=== PATIENT | male | born 1970 | race Caucasian/White ===

== ENCOUNTER 2024-05-05 15:49 | Emergency (ER) | payer MEDICAID, SELFPAY ==
--- NOTE | 2024-05-05 15:52 | XRR_ITS ---
PROCEDURE INFORMATION: Exam: XR Chest Exam date and time: 05/05/2024 4:23 PM Age: 53 years old Clinical indication: Fever TECHNIQUE: Imaging protocol: Radiologic exam of the chest. Views: 1 view. COMPARISON: No relevant prior studies available. FINDINGS: Lungs: Calcified granuloma in the left upper lobe. Possible ground-glass opacities in the peripheral lungs bilaterally. No consolidation. Pleural spaces: Unremarkable. No pleural effusion. No pneumothorax. Heart/Mediastinum: Unremarkable. No cardiomegaly. Bones/joints: Resection of the distal left clavicle. No fracture. XR/XR chest 1V portable [id number] IMPRESSION: Mild ground-glass opacities in the peripheral lungs. This may in part relate to underpenetration of the image. Multilobar pneumonia cannot be excluded.
[2024-05-05 16:00] VITALS: BP 154/77; PULSE 73; RESP 18; TEMP 36.7; O2SAT 97
[2024-05-05 16:04] VITALS: RESP 18
--- NOTE | 2024-05-05 16:19 | W.ED.GENADLT ---
Documented by User: MILDRED Forde 05/05/24 16:35 HPI - General Adult General: Chief complaint: COVID symptoms Stated complaint: coughing, sore throat, no engery, fever Time Seen by Provider: 05/05/24 16:08 Source: patient and family Mode of arrival: ambulatory Limitations: no limitations History of Present Illness: Patient is 83-year-old male presents to ED today along with his significant other for evaluation of illness. Patient states he has felt ill over the past 3 weeks. He complains of profound fatigue. He states 3 weeks ago he began with URI-like symptoms including a sore throat cough. He was subsequently placed on azithromycin which she finished. He states he was also given steroids and albuterol. He was reportedly being treated for a COPD exacerbation. Patient states he did not get improvement so he returned where he was prescribed doxycycline. He started this medication yesterday. At some point he did have a chest x-ray which was reportedly normal. He feels like cough is somewhat better. He still complains of a sore throat. He feels like his feet are burning. He also states his penis is burning. He has not noticed any rashes or lesions. He does not complain of penile discharge or dysuria. His main complaint is fatigue. Onset (ago): week(s) Relieving factors: none Exacerbating factors: none Associated symptoms: Deny chest pain, dyspnea, headache(s), nausea, rash or vomiting Related Data Home Medications Medication Instructions Recorded Confirmed albuterol sulfate 1.25 mg/3 mL 1.25 mg inhalation QID PRN 06/29/23 06/29/23 solution for nebulization fluticasone fur. 100 mcg-umeclid 1 inh inhalation DAILY 06/29/23 06/29/23 62.5 mcg-vilant 25 mcg inhalat.powder (Trelegy Ellipta) Previous Rx's Medication Instructions Recorded cyclobenzaprine 10 mg tablet 10 mg PO TID PRN muscle spasm #20 06/29/23 tabs ketorolac 10 mg tablet 10 mg PO TID PRN pain 4 days #12 06/29/23 tabs benzonatate 200 mg capsule 200 mg PO BID PRN cough #30 caps 05/05/24 lidocaine HCl 2 % mucosal solution 10 ml mucous membrane DAILY PRN 05/05/24 (Lidocaine Viscous) pain #100 mL Allergies Allergy/AdvReac Type Severity Reaction Status Date / Time Penicillins Allergy Severe ALGY-Anaphy Verified 06/29/23 14:03 laxis celecoxib [From Celebrex] Allergy Intermediate ADR-Itching Verified 06/29/23 14:03 diclofenac [From Arthrotec] Allergy Intermediate ADR-Itching Verified 06/29/23 14:03 erythromycin base Allergy Intermediate ADR-Itching Verified 06/29/23 14:03 misoprostol [From Arthrotec] Allergy Intermediate ADR-Itching Verified 06/29/23 14:03 Review of Systems Const: Reports: fatigue; Denies: fever(s), chills or body aches Eyes: Denies: change in vision, blurry vision, photophobia, floaters or seeing flashes ENMT: Reports: throat pain and odynophagia; Denies: ear or mastoid pain, nasal discharge, nasal congestion or sinus pain Card: Denies: chest pain Resp: Reports: productive cough; Denies: dyspnea, wheezing, hemoptysis or chest congestion GI: Denies: abdominal pain, nausea, vomiting or diarrhea : Denies: flank pain, difficulty urinating, dysuria, urinary frequency, urinary urgency or urinary hesitancy Musc: Reports: extremity pain (states his feet burn); Denies: neck pain, back pain, extremity swelling, joint pain or joint swelling Skin/Breast: Denies: rash Neuro: Denies: headache(s), weakness in extremities or dizziness Physical Exam Const: COMMON NORMALS: no acute distress, average body habitus, patient oriented x3, no limitations, healthy appearing, alert and well nourished GENERAL APPEARANCE: cooperative ORIENTATION/CONSCIOUSNESS: Yes awake, Yes oriented to person, Yes oriented to place and Yes oriented to time HENMT: COMMON NORMALS: normocephalic and atraumatic HEAD & SCALP: normal to inspection, normocephalic and atraumatic FACE & SINUS: normal facial exam MOUTH: Normal oral and palatal mucosa present and lip normal TEETH & GINGIVA: Yes edentulous THROAT: tonsils normal and posterior oropharynx abnormal erythema Eye: GENERAL EYE: appearance normal, both eyes and all related structures Neck/C-Spine: COMMON NORMALS: no lymphadenopathy Chest: COMMONS NORMALS: normal inspection of the chest and normal palpation of entire chest wall Resp: COMMON NORMALS: normal respiratory effort and clear to auscultation bilaterally AUSCULTATION: clear to auscultation bilaterally Cardio: COMMON NORMALS: regular rate and regular rhythm RATE: regular rate RHYTHM: regular rhythm GI: COMMON NORMALS: Normal to inspection, nondistended, normoactive bowel sounds present, Soft to palpation, non-tender, No hepatosplenomegaly present and no masses PALPATION: Yes Soft to palpation and Yes No hepatosplenomegaly present : COMMON NORMALS: Yes no CVA tenderness BLADDER/KIDNEY EXAM: Yes no CVA tenderness Back/Pelvis: COMMON NORMALS: no CVA tenderness and thoracic and lumbar spine normal to inspection Extremity: GENERAL: Yes normal exam except as noted Neuro: MARI COMA SCALE: document GCS findings [place] coma scale eye opening: Spontaneous [place] coma scale verbal response: Orientated Mari coma scale motor response: Obey commands [place] coma scale total score: 15 COMMON NORMALS: patient oriented x3, moves all extremities, no focal motor deficits, no sensory deficits noted and gait normal SENSORIUM/ORIENTATION: Yes alert, Yes oriented to person, Yes oriented to place and Yes oriented to time Skin: COMMON NORMALS: no rashes or lesions noted GENERAL SKIN EXAM: no rashes or lesions noted Course Vital Signs: Vital signs: Vital Signs Temperature 98.0 F 05/05/24 16:00 Pulse Rate 88 05/05/24 18:27 Respiratory Rate 18 05/05/24 18:27 Blood Pressure 149/87 05/05/24 18:27 Pulse Oximetry 97 05/05/24 18:27 Oxygen Delivery Me thod Room Air 05/05/24 18:04 [facility] - General Adult Lab Data 05/05/24 16:29 05/05/24 16:29 Radiology Impressions Chest X-Ray 05/05/24 15:52 IMPRESSION: Mild ground-glass opacities in the peripheral lungs. This may in part relate to underpenetration of the image. Multilobar pneumonia cannot be excluded. Laboratory Results WBC 11.80 10^3/uL (3.29-11.43) H 05/05/24 16: RBC 4.92 10^6/uL (3.85-5.65) 05/05/24 16:29 Hgb 14.70 g/dL (11.27-16.99) 05/05/24 16: Hct 44.6 % (37-53) 05/05/24 16: MCV 90.7 fl (82-101) 05/05/24 16: MCH 29.9 pg (27-33) 05/05/24 16: MCHC 33.0 g/dL (30-55) 05/05/24 16: RDW 13.2 % (12.1-15.1) 05/05/24 16: Plt Count 161 10^3/cmm (157-399) 05/05/24 16: MPV 9.6 fL (7.4-10.4) 05/05/24 16: Neut % (Auto) 67.3 % 05/05/24 16: Lymph % (Auto) 15.9 % 05/05/24 16: [place] % (Auto) 10.1 % 05/05/24 16: Eos % (Auto) 4.4 % 05/05/24 16: Baso % (Auto) 1.4 % 05/05/24: Neut # (Auto) 7.94 10^3/uL (1.8-7.7) H 05/05/24 16: Lymph # (Auto) 1.9 10^3/uL (0.8-4.8) 05/05/24 16: [place] # (Auto) 1.2 10^3/uL (0.2-0.9) H 05/05/24 16: Eos # (Auto) 0.5 10^3/uL (0.0-0.8) 05/05/24 16: Baso # (Auto) 0.2 10^3/uL (0.0-0.1) H 05/05/24 16: Nucleated RBC % (auto) 0 % 05/05/24: Nucleated RBCs # 0.0 /100WBC 05/05/24 16: Sodium 137 mmol/L (136-145) 05/05/24 16: Potassium 4.0 mmol/L (3.5-5.1) 05/05/24 16: Chloride 99 mmol/L (98-107) 05/05/24 16: Carbon Dioxide 29 mmol/L (22-29) 05/05/24 16: Anion Gap 13.0 (5-19) 05/05/24 16: BUN 20 mg/dL (6-20) 05/05/24 16: Creatinine 1.1 mg/dL (0.7-1.2) 05/05/24 16: GFR Calculation 69.5 mL/min (90-130) L 05/05/24 16: Glucose 86 mg/dL (65-115) 05/05/24 16: Calculated Osmolality 286 mOsm/kg (285-295) 05/05/24 16: Calcium 8.8 mg/dL (8.5-10.5) 05/05/24 16: Total Bilirubin 0.4 mg/dL (0.15-1.2) 05/05/24 16: AST 16 U/L (0-40) 05/05/24 16: ALT 25 U/L (0-41) 05/05/24 16: Alkaline Phosphatase 80 U/L (40-130) 05/05/24 16: Total Protein 7.1 g/dL (6.6-8.7) 05/05/24 16: Albumin 4.2 g/dL (3.5-5.2) 05/05/24 16: Globulin 2.9 g/dL (1.3-4.6) 05/05/24 16: Urine Color Yellow (Yellow) 05/05/24 16:55 Urine Appearance Clear (CLEAR) 05/05/24 16:55 Urine pH 5.0 (5-7) 05/05/24 16:55 Ur Specific [place] 1.017 (1.005-1.030) 05/05/24 16:55 Urine Protein Negative (Negative) 05/05/24 16:55 Urine Glucose (UA) Negative (Normal) 05/05/24 16:55 Urine Ketones Negative (Negative) 05/05/24 16:55 Urine Blood Negative (Negative) 05/05/24 16:55 Urine Nitrate Negative (Negative) 05/05/24 16:55 Urine Bilirubin Negative (Negative) 05/05/24 16:55 Urine Urobilinogen 0.2 mg/dL (Negative) 05/05/24 16:55 Ur Leukocyte Esterase Negative (Negative) 05/05/24 16:55 Amorphous Sediment Not Reportable 05/05/24 16:55 Adenovirus (PCR) Not detected (NOT DETECT) 05/05/24 16:11 C. pneumoniae DNA (PCR) Not detected (NOT DETECT) 05/05/24 16:11 Coronavirus 229E (PCR) Not detected (NOT DETECT) 05/05/24 16:11 Monoscreen Negative (Negative) 05/05/24 16:29 Human Metapneumovir PCR Not detected (NOT DETECT) 05/05/24 16:11 Influenza A (H1) PCR Not detected (NOT DETECT) 05/05/24 16:11 Influ A (H1/09) PCR Not detected (NOT DETECT) 05/05/24 16:11 Influenza A (H3) PCR Not detected (NOT DETECT) 05/05/24 16:11 Influenza Type A (PCR) Not detected (NOT DETECT) 05/05/24 16:11 Influenza Type B (PCR) Not detected (NOT DETECT) 05/05/24 16:11 M. pneumoniae (PCR) Not detected (NOT DETECT) 05/05/24 16:11 Parainfluenza 1 (PCR) Not detected (NOT DETECT) 05/05/24 16:11 Parainfluenza 2 (PCR) Not detected (NOT DETECT) 05/05/24 16:11 Parainfluenza 3 (PCR) Not detected (NOT DETECT) 05/05/24 16:11 Parainfluenza 4 (PCR) Not detected (NOT DETECT) 05/05/24 16:11 RSV Type A (PCR) Not detected (NOT DETECT) 05/05/24 16:11 RSV Type B (PCR) Not detected (NOT DETECT) 05/05/24 16:11 Entero/Rhino (PCR) Not detected (NOT DETECT) 05/05/24 16:11 SARS-CoV-2 (PCR) Not detected (NOT DETECT) 05/05/24 16:11 Discharge Plan Discharge Patient Disposition: Home Clinical Impression: Pneumonia Qualifiers: Pneumonia type: due to unspecified organism Laterality: bilateral Lung location: unspecified part of lung Qualified Code(s): J18.9 - Pneumonia, unspecified organism Condition: Stable Prescriptions: New benzonatate 200 mg capsule 200 mg PO BID PRN (Reason: cough) Qty: 30 0RF lidocaine HCl [Lidocaine Viscous] 2 % solution 10 ml mucous membrane DAILY PRN (Reason: pain) Qty: 100 0RF No Action Trelegy Ellipta 100-62.5-25 mcg blister with device 1 inh inhalation DAILY albuterol sulfate 1.25 mg/3 mL solution for nebulization 1.25 mg inhalation QID PRN ketorolac 10 mg tablet 10 mg PO TID PRN (Reason: pain) 4 Days Qty: 12 0RF cyclobenzaprine 10 mg tablet 10 mg PO TID PRN (Reason: muscle spasm) Qty: 20 0RF Discharge Orders: Discharge ED (Routine); Ordered 05/05/24 Ordered By: Candido Foote Patient Instructions: Pneumonia (ED) Activity Restrictions/Additional Instructions: Continue taking your doxycycline. Tessalon Perles for cough. Viscous lidocaine for your sore throat. Liquid diet. Tylenol/ibuprofen for any pain or fevers. If you continue to get worse, return to the ED or follow-up with your primary care for further evaluation. Sign Out Sign Out Data: Patient Sign Out occurred on 05/05/24 at 17:10. Patient's care was discussed, and care was transferred from MILDRED Forde to MILDRED Maretl. Coding Level of Care Code ED Bale Sewer for Chg Fwd Documented by User: MILDRED Martel 05/05/24 19:02 HPI - General Adult General: Chief complaint: COVID symptoms Stated complaint: coughing, sore throat, no engery, fever Time Seen by Provider: 05/05/24 16:08 Related Data Home Medications Medication Instructions Recorded Confirmed albuterol sulfate 1.25 mg/3 mL 1.25 mg inhalation QID PRN 06/29/23 06/29/23 solution for nebulization fluticasone fur. 100 mcg-umeclid 1 inh inhalation DAILY 06/29/23 06/29/23 62.5 mcg-vilant 25 mcg inhalat.powder (Trelegy Ellipta) Previous Rx's Medication Instructions Recorded cyclobenzaprine 10 mg tablet 10 mg PO TID PRN muscle spasm #20 06/29/23 tabs ketorolac 10 mg tablet 10 mg PO TID PRN pain 4 days #12 06/29/23 tabs benzonatate 200 mg capsule 200 mg PO BID PRN cough #30 caps 05/05/24 lidocaine HCl 2 % mucosal solution 10 ml mucous membrane DAILY PRN 05/05/24 (Lidocaine Viscous) pain #100 mL Allergies Allergy/AdvReac Type Severity Reaction Status Date / Time Penicillins Allergy Severe ALGY-Anaphy Verified 06/29/23 14:03 laxis celecoxib [From Celebrex] Allergy Intermediate ADR-Itching Verified 06/29/23 14:03 diclofenac [From Arthrotec] Allergy Intermediate ADR-Itching Verified 06/29/23 14:03 erythromycin base Allergy Intermediate ADR-Itching Verified 06/29/23 14:03 misoprostol [From Arthrotec] Allergy Intermediate ADR-Itching Verified 06/29/23 14:03 Physical Exam Neuro: MARI COMA SCALE: document GCS findings Mari coma scale total score: 15 Course Vital Signs: Vital signs: Vital Signs Temperature 98.0 F 05/05/24 16:00 Pulse Rate 88 05/05/24 18:27 Respiratory Rate 18 05/05/24 18:27 Blood Pressure 149/87 05/05/24 18:27 Pulse Oximetry 97 05/05/24 18:27 Oxygen Delivery In thod Room Air 05/05/24 18:04 MDM - General Adult Medical Decision Making Care of patient transferred to nv by mid shift provider. Patient is dealing with few weeks of cough, sore throat, and fatigue. Had a short 5-day course of doxycycline, finished this and states he did not get much better so he was started again on doxycycline and just recently started taking this again. He is also already gone through steroids. An x-ray here did show signs of may be a pneumonia, his lab work was unremarkable, monoscreen negative, urinalysis normal. This could represent an atypical pneumonia and he is to continue doxycycline and follow-up with primary care with requesting something for the sore throat and cough, will prescribe lidocaine and Tessalon Perles. Reasons to return discussed, he endorses understanding. Lab Data 05/05/24 16:29 05/05/24 16:29 Radiology Impressions Chest X-Ray 05/05/24 15:52 IMPRESSION: Mild ground-glass opacities in the peripheral lungs. This may in part relate to underpenetration of the image. Multilobar pneumonia cannot be excluded. Laboratory Results WBC 11.80 10^3/uL (3.29-11.43) H 05/05/24 16: RBC 4.92 10^6/uL (3.85-5.65) 05/05/24 16: Hgb 14.70 g/dL (11.27-16.99) 05/05/24 16: Hct 44.6 % (37-53) 05/05/24 16: MCV 90.7 fl (82-101) 05/05/24 16: MCH 29.9 pg (27-33) 05/05/24 16: MCHC 33.0 g/dL (30-55) 05/05/24: RDW 13.2 % (12.1-15.1) 05/05/24 16: Plt Count 161 10^3/cmm (157-399) 05/05/24 16: MPV 9.6 fL (7.4-10.4) 05/05/24 16: Neut % (Auto) 67.3 % 05/05/24 16: Lymph % (Auto) 15.9 % 05/05/24 16: [place] % (Auto) 10.1 % 05/05/24: Eos % (Auto) 4.4 % 05/05/24: Baso % (Auto) 1.4 % 05/05/24: Neut # (Auto) 7.94 10^3/uL (1.8-7.7) H 05/05/24: Lymph # (Auto) 1.9 10^3/uL (0.8-4.8) 05/05/24 16: [place] # (Auto) 1.2 10^3/uL (0.2-0.9) H 05/05/24: Eos # (Auto) 0.5 10^3/uL (0.0-0.8) 05/05/24: Baso # (Auto) 0.2 10^3/uL (0.0-0.1) H 05/05/24 16: Nucleated RBC % (auto) 0 % 05/05/24 16: Nucleated RBCs # 0.0 /100WBC 05/05/24 16:29 Sodium 137 mmol/L (136-145) 05/05/24 16: Potassium 4.0 mmol/L (3.5-5.1) 05/05/24 16: Chloride 99 mmol/L (98-107) 05/05/24 16: Carbon Dioxide 29 mmol/L (22-29) 05/05/24 16: Anion Gap 13.0 (5-19) 05/05/24 16: BUN 20 mg/dL (6-20) 05/05/24 16: Creatinine 1.1 mg/dL (0.7-1.2) 05/05/24 16: GFR Calculation 69.5 mL/min (90-130) L 05/05/24 16: Glucose 86 mg/dL (65-115) 05/05/24 16: Calculated Osmolality 286 mOsm/kg (285-295) 05/05/24 16: Calcium 8.8 mg/dL (8.5-10.5) 05/05/24 16: Total Bilirubin 0.4 mg/dL (0.15-1.2) 05/05/24 16: AST 16 U/L (0-40) 05/05/24 16: ALT 25 U/L (0-41) 05/05/24 16: Alkaline Phosphatase 80 U/L (40-130) 05/05/24 16: Total Protein 7.1 g/dL (6.6-8.7) 05/05/24 16: Albumin 4.2 g/dL (3.5-5.2) 05/05/24 16: Globulin 2.9 g/dL (1.3-4.6) 05/05/24 16:29 Urine Color Yellow (Yellow) 05/05/24 16:55 Urine Appearance Clear (CLEAR) 05/05/24 16:55 Urine pH 5.0 (5-7) 05/05/24 16: Ur Specific [place] 1.017 (1.005-1.030) 05/05/24 16: Urine Protein Negative (Negative) 05/05/24 16:55 Urine Glucose (UA) Negative (Normal) 05/05/24 16:55 Urine Ketones Negative (Negative) 05/05/24 16:55 Urine Blood Negative (Negative) 05/05/24 16:55 Urine Nitrate Negative (Negative) 05/05/24 16:55 Urine Bilirubin Negative (Negative) 05/05/24 16:55 Urine Urobilinogen 0.2 mg/dL (Negative) 05/05/24 16:55 Ur Leukocyte Esterase Negative (Negative) 05/05/24 16:55 Amorphous Sediment Not Reportable 05/05/24 16:55 Adenovirus (PCR) Not detected (NOT DETECT) 05/05/24 16:11 C. pneumoniae DNA (PCR) Not detected (NOT DETECT) 05/05/24 16:11 Coronavirus 229E (PCR) Not detected (NOT DETECT) 05/05/24 16:11 Monoscreen Negative (Negative) 05/05/24 16:29 Human Metapneumovir PCR Not detected (NOT DETECT) 05/05/24 16:11 Influenza A (H1) PCR Not detected (NOT DETECT) 05/05/24 16:11 Influ A (H1/09) PCR Not detected (NOT DETECT) 05/05/24 16:11 Influenza A (H3) PCR Not detected (NOT DETECT) 05/05/24 16:11 Influenza Type A (PCR) Not detected (NOT DETECT) 05/05/24 16:11 Influenza Type B (PCR) Not detected (NOT DETECT) 05/05/24 16:11 M. pneumoniae (PCR) Not detected (NOT DETECT) 05/05/24 16:11 Parainfluenza 1 (PCR) Not detected (NOT DETECT) 05/05/24 16:11 Parainfluenza 2 (PCR) Not detected (NOT DETECT) 05/05/24 16:11 Parainfluenza 3 (PCR) Not detected (NOT DETECT) 05/05/24 16:11 Parainfluenza 4 (PCR) Not detected (NOT DETECT) 05/05/24 16:11 RSV Type A (PCR) Not detected (NOT DETECT) 05/05/24 16:11 RSV Type B (PCR) Not detected (NOT DETECT) 05/05/24 16:11 Entero/Rhino (PCR) Not detected (NOT DETECT) 05/05/24 16:11 SARS-CoV-2 (PCR) Not detected (NOT DETECT) 05/05/24 16:11 All radiology interpretation(s) finalized by discharge Discharge Plan Discharge Patient Disposition: Home Clinical Impression: Pneumonia Qualifiers: Pneumonia type: due to unspecified organism Laterality: bilateral Lung location: unspecified part of lung Qualified Code(s): J18.9 - Pneumonia, unspecified organism Condition: Stable Prescriptions: New benzonatate 200 mg capsule 200 mg PO BID PRN (Reason: cough) Qty: 30 0RF lidocaine HCl [Lidocaine Viscous] 2 % solution 10 ml mucous membrane DAILY PRN (Reason: pain) Qty: 100 0RF No Action Trelegy Ellipta 100-62.5-25 mcg blister with device 1 inh inhalation DAILY albuterol sulfate 1.25 mg/3 mL solution for nebulization 1.25 mg inhalation QID PRN ketorolac 10 mg tablet 10 mg PO TID PRN (Reason: pain) 4 Days Qty: 12 0RF cyclobenzaprine 10 mg tablet 10 mg PO TID PRN (Reason: muscle spasm) Qty: 20 0RF Discharge Orders: Discharge ED (Routine); Ordered 05/05/24 Ordered By: Candido Foote Patient Instructions: Pneumonia (ED) Activity Restrictions/Additional Instructions: Continue taking your doxycycline. Tessalon Perles for cough. Viscous lidocaine for your sore throat. Liquid diet. Tylenol/ibuprofen for any pain or fevers. If you continue to get worse, return to the ED or follow-up with your primary care for further evaluation. Sign Out Sign Out Data: Patient Sign Out occurred on 05/05/24 at 17:10. Patient's care was discussed, and care was transferred from MILDRED Forde to MILDRED Martel. Coding Level of Care Code ED Bale Sewer for Manny Pagan
[2024-05-05 16:37] LABS: Basophils # 0.2 10^3/uL (0.0-0.1); Basophils % 1.4 %; Eosinophils # 0.5 10^3/uL (0.0-0.8); Eosinophils % 4.4 %; Hematocrit 44.6 % (37-53); Lymphocytes # 1.9 10^3/uL (0.8-4.8); Lymphocytes % 15.9 %; Mean Corpuscular Hemoglobin 29.9 pg (27-33); Mean Corpuscular Volume 90.7 fl (82-101); Mean Platelet Volume 9.6 fL (7.4-10.4); Monocytes # 1.2 10^3/uL (0.2-0.9); Monocytes % 10.1 %; Neutrophils # 7.94 10^3/uL (1.8-7.7); Neutrophils % 67.3 %; Nucleated Red Blood Cells % 0 %; Platelet Count 161 10^3/cmm (157-399); Red Blood Count 4.92 10^6/uL (3.85-5.65); Red Cell Distribution Width 13.2 % (12.1-15.1)
[2024-05-05 16:57] LABS: Alanine Aminotransferase 25 U/L (0-41); Albumin Level 4.2 g/dL (3.5-5.2); Alkaline Phosphatase 80 U/L (40-130); Aspartate Amino Transferase 16 U/L (0-40); Blood Urea Nitrogen 20 mg/dL (6-20); Calcium 8.8 mg/dL (8.5-10.5); Carbon Dioxide 29 mmol/L (22-29); Chloride 99 mmol/L (98-107); Creatinine Clr Calc Pharmacy 97.1696; Globulin 2.9 g/dL (1.3-4.6); Glomerular Filtration Rate 69.5 mL/min (90-130); Glucose 86 mg/dL (65-115); Osmolality Calculated 286 mOsm/kg (285-295); Sodium 137 mmol/L (136-145); Total Bilirubin 0.4 mg/dL (0.15-1.2); Total Protein 7.1 g/dL (6.6-8.7)
[2024-05-05 17:00] VITALS: O2SAT 96
[2024-05-05 17:08] LABS: Add Urine Microscopic? NO
[2024-05-05 17:15] LABS: Bilirubin Urine Negative (Negative); Blood Urine Negative (Negative); Glucose Urine UA Negative (Normal); Ketones Urine Negative (Negative); Leukocyte Esterase Urine Negative (Negative); Nitrate Urine Negative (Negative); Protein Urine Negative (Negative); Specific Gravity, Urine 1.017 (1.005-1.030); Urine Appearance Clear (CLEAR); Urine Color Yellow (Yellow); Urobilinogen Urine 0.2 mg/dL (Negative)
[2024-05-05 17:19] LABS: Add Urine Culture? No; Charge for UA Resulting for Rev
[2024-05-05 17:25] LABS: Monoscreen Negative (Negative)
[2024-05-05 18:04] VITALS: PULSE 67; RESP 18; O2SAT 97
[2024-05-05] MEDS: benzonatate 100 mg Capsule 200 MG PO (18:23)
[2024-05-05] MEDS: lidocaine 2% viscous 15 mL UDC 10 ML MUCOUS MEM (18:23)
[2024-05-05 18:27] VITALS: BP 149/87; PULSE 88; RESP 18; O2SAT 97
[2024-05-05 18:35] LABS: Adenovirus Not Detected (NOT DETECT); Chlamydia Pneumoniae Not Detected (NOT DETECT); Coronavirus 229E,HKU1,NL63,OC4 Not Detected (NOT DETECT); Human Metapneumovirus Not Detected (NOT DETECT); Human Rhinovirus/Enterovirus Not Detected (NOT DETECT); Influenza A Not Detected (NOT DETECT); Influenza A H1 Not Detected (NOT DETECT); Influenza A H1-2009 Not Detected (NOT DETECT); Influenza A H3 Not Detected (NOT DETECT); Influenza B Not Detected (NOT DETECT); Mycoplasma Pneumoniae Not Detected (NOT DETECT); Parainfluenza Virus Type 1 Not Detected (NOT DETECT); Parainfluenza Virus Type 2 Not Detected (NOT DETECT); Parainfluenza Virus Type 3 Not Detected (NOT DETECT); Parainfluenza Virus Type 4 Not Detected (NOT DETECT); Respiratory Syncytial Virus A Not Detected (NOT DETECT); Respiratory Syncytial Virus B Not Detected (NOT DETECT); SARS-COV-2 Not Detected (NOT DETECT)
== END 2024-05-05 18:33 | disposition home or self-care (01) ==
PROVIDERS: Physician Assistant; Emergency Provider Physician Assistant
DX: J18.9 Pneumonia, unspecified organism (principal); Z11.52 Encounter for screening for COVID-19
CPT/HCPCS: 71045; 80053; 81003; 85025; 86308; 87486; 87581; 87633; 99284

== ENCOUNTER 2024-06-12 08:52 | Outpatient (CLI) | payer MEDICAID, SELFPAY ==
--- NOTE | 2024-06-12 08:56 | USCV_ITS ---
Tip Taylor Age: 53 Gender: M : 1970 Exam Date: 06/12/2024 09:35 Ordering Phys: Dioni Addison Technologist: Jimmy Sotomayor Exam Location: [facility] [place] Indication: cardiomegaly BP: 146 / 87 HR: 52 Rhythm: Sinus Technical Quality: Adequate MEASUREMENTS (Male / Female) Normal Values 2D ECHO LV Diastolic Diameter PLAX 6.5 cm 4.2 - 5.9 / 3.9 - 5.3 cm IVS Diastolic Thickness 1.5 cm 0.6 - 1.0 / 0.6 - 0.9 cm IVS Systolic Thickness 2.0 cm LVPW Diastolic Thickness 1.5 cm 0.6 - 1.0 / 0.6 - 0.9 cm LVPW Systolic Thickness 1.8 cm LVOT Diameter 2.1 cm LV Ejection Fraction 2D Teich 61.3 % LV Ejection Fraction MOD 4C 55.4 % LV Ejection Fraction MOD 2C 57.5 % LV Ejection Fraction 2C AL 58.7 % LA Diameter 4.4 cm RA Systolic Volume 4C AL 47.1 ml RA Systolic Volume 4C MOD 46.3 ml LA Sys Volume AL 62.5 cm cubed LA Sys Volume Index AL 26.0 cm cubed/m squared Aorta at Sinotubular Diameter 2.3 cm IVC Diameter 1.7 cm M-MODE LA Ao Ratio MM 1.1 AV Cusp Separation MM 1.7 cm DOPPLER AV Peak Velocity 132.0 cm/s LVOT Peak Velocity 61.0 cm/s AV Area Cont Eq vti 1.7 cm squared AV Area Cont Eq pk 1.5 cm squared MV Peak Velocity 370.7 cm/s MV Area PHT 2.7 cm squared Mitral E to A Ratio 0.8 TV Peak Velocity 315.0 cm/s TR Peak Velocity 323.5 cm/s TR Peak Gradient 41.9 mmHg TR Mean Velocity 244.0 cm/s TR Mean Gradient 25.7 mmHg TR Velocity Time Integral 78.2 cm PV Peak Velocity 103.3 cm/s RV Ejection Time 0.3 s FINDINGS Left Ventricle Normal left ventricular size, systolic function and wall thickness, with no regional wall motion abnormalities. Left ventricular ejection fraction is estimated at 60 %. Grade I/IV diastolic dysfunction (abnormal relaxation filling pattern), normal to mildly elevated filling pressures. Right Ventricle The right ventricle is normal in size and function. RVSP could not be calculated due to incomplete tricuspid regurgitation velocity profile. Right Atrium The right atrium is normal in size. Left Atrium The left atrium is normal in size. Mitral Valve Mildly thickened mitral valve. Mild mitral valve regurgitation. Aortic Valve Mild aortic valve calcification. No aortic valve stenosis. Trace aortic valve regurgitation. Tricuspid Valve Structurally normal tricuspid valve without significant stenosis or regurgitation. Pulmonic Valve Structurally normal pulmonic valve without significant stenosis. There is no pulmonic regurgitation. Pericardium Normal pericardium without effusion. Aorta Normal ascending aorta dimension. IVC The inferior vena cava appears normal. CONCLUSIONS Normal left ventricular size, systolic function and wall thickness, with no regional wall motion abnormalities. Left ventricular ejection fraction is estimated at 60 %. Grade I/IV diastolic dysfunction (abnormal relaxation filling pattern), normal to mildly elevated filling pressures. Mildly thickened mitral valve. Mild mitral valve regurgitation. Mild aortic valve calcification. No aortic valve stenosis. Trace aortic valve regurgitation. There is no pericardial effusion. Right atrial pressure is around 5 mm of mercury. Sierra Cortes MD (Electronically Signed) Final Date: 13 June 2024 01:09 S
== END 2024-06-12 08:53 | disposition home or self-care (01) ==
LOC: RAD 08:55
PROVIDERS: PCP Nurse Practitioner Family; Visit Provider Nurse Practitioner Family
DX: I50.30 Unspecified diastolic (congestive) heart failure (principal); I51.7 Cardiomegaly
CPT/HCPCS: 93306

== ENCOUNTER 2024-06-16 06:32 | Day surgery (SDC) | payer MEDICAID, SELFPAY ==
--- NOTE | 2024-06-16 05:57 | P.HPUD_ITS ---
Surgery/Procedure H&P Update DATE OF PROCEDURE: June 16, 2024 DATE H&P PERFORMED: 06/12/24 H&P UPDATE INFORMATION: I have reviewed H&P completed within last 30 days, I have examined patient prior to procedure, No changes to prior documentation and H&P is in [facility] EMR on date indicated PLANNED PROCEDURE: Operation Date: 06/16/24 07:45 Proposed Procedures p Colonoscopy- 91422, g0121, z12.11(Not Applicable) - Candido Watson MD
--- NOTE | 2024-06-16 05:57 | W.PM.OPSUD ---
Surgery/Procedure H&P Update DATE OF PROCEDURE: June 16, 2024 DATE H&P PERFORMED: 06/12/24 H&P UPDATE INFORMATION: I have reviewed H&P completed within last 30 days, I have examined patient prior to procedure, No changes to prior documentation and H&P is in [facility] EMR on date indicated PLANNED PROCEDURE: Operation Date: 06/16/24 07:45 Proposed Procedures p Colonoscopy- 27545, g0121, z12.11(Not Applicable) - Candido Watson MD
[2024-06-16 06:53] VITALS: BP 125/65; PULSE 651; RESP 18; TEMP 37.1; O2SAT 98; BMI 34.8
[2024-06-16] MEDS: sodium chloride 0.9% 500 ML 15 ML IV (06:58)
--- NOTE | 2024-06-16 06:58 | ANES.PREANE2 ---
Pre-Anesthetic Assessment Height/Weight: Height 1.8 m Weight 113.398 kg Temp Pulse Resp BP Pulse Ox O2 Del Method 98.7 F 651 H 18 125/65 98 Room Air 06/16/24 06:53 06/16/24 06:53 06/16/24 06:53 06/16/24 06:53 06/16/24 06:53 06/16/24 06:53 Preop Diagnosis: Cologard positive Operation Date: 06/16/24 07:45 Proposed Procedures p Colonoscopy- 56421, [id number], z12.11(Not Applicable) - Candido Watson MD Familial anesthetic complications: none Was Beta Eulogio taken within 24 hours: N/A Was Clonidine taken within 24 hours: N/A Last intake: Intake Last Liquid Date 06/15/24 Last Liquid Time 23:22 Last Solid Date 06/14/24 Last Solid Time 18:00 Social Tobacco and No alcohol 1.5 PPD pack(s) per day Exam alert, oriented x 3, clear to auscultation bilaterally and regular rate & rhythm Airway Submandibular: within normal limits Cervical ROM: within normal limits Mallampati: Class II Dentition: false History/ROS No significant history except as noted and No significant complaints Pulmonary Chronic Obstructive Pulmonary Disease CV/HEM Hypertension None reported Hepatic None reported GI Gastroesophageal Reflux Disease Musc/skel None reported Neuropsych Anxiety Anesthetic Plan ASA status: 3 Anesthesia: MAC Risk of > 500 ml blood loss (7ml/kg in children): No Medications/Allergies Home Medications Medication Instructions Recorded Confirmed Last Taken Type albuterol sulfate 1.25 mg/3 mL 1.25 mg inhalation QID PRN 06/29/23 06/11/24 06/10/24 History solution for nebulization Shortness Of Breath Or Wheezing fluticasone fur. 100 mcg-umeclid 1 inh inhalation DAILY 06/29/23 06/11/24 06/11/24 History 62.5 mcg-vilant 25 mcg inhalat.powder (Trelegy Ellipta) benzonatate 200 mg capsule 200 mg PO BID PRN cough #30 caps 05/05/24 06/11/24 Unknown Rx lidocaine HCl 2 % mucosal solution 10 ml mucous membrane DAILY PRN 05/05/24 06/11/24 Unknown Rx (Lidocaine Viscous) pain #100 mL atorvastatin 40 mg tablet 40 mg PO BEDTIME 1206/11/24 06/10/24 History citalopram 20 mg tablet (Celexa) 20 mg PO DAILY 06/11/24 06/11/24 06/11/24 History hydrochlorothiazide 12.5 mg tablet 12.5 mg PO DAILY 06/11/24 06/11/24 06/15/24 History losartan 50 mg tablet 50 mg PO DAILY 06/11/24 06/11/24 06/15/24 History Centrum Adult 50 Plus 1 tab PO DAILY 06/16/24 06/16/24 06/15/24 History Allergies Allergy/AdvReac Type Severity Reaction Status Date / Time Penicillins Allergy Severe ALGY-Anaphy Verified 06/11/24 10:38 laxis celecoxib [From Celebrex] Allergy Intermediate ADR-Itching Verified 06/11/24 10:38 diclofenac [From Arthrotec] Allergy Intermediate ADR-Itching Verified 06/11/24 10:38 erythromycin base Allergy Intermediate ADR-Itching Verified 06/11/24 10:38 misoprostol [From Arthrotec] Allergy Intermediate ADR-Itching Verified 06/11/24 10:38 [facility] Anesthesia Medical History Psychiatric care Social History (Updated 06/10/24 @ 10:55 by JEMMA Godinez) Smoking and tobacco/nicotine status: never used tobacco/nicotine Alcohol intake: current Alcohol intake frequency: few times a month Alcohol type: beer Substance/Drug Use: never Data Anesthesia Cardiac Studies: Echocardiogram 06/12/24
[2024-06-16 07:54] VITALS: BP 89/55; PULSE 57; RESP 16; TEMP 36.1; O2SAT 91
--- NOTE | 2024-06-16 08:15 | ANE.PACU2 ---
Inpatient post-anesthesia follow up: Airway intact: Yes Vital signs: Temperature 97.0 F Pulse Rate 57 Respiratory Rate 16 Blood Pressure 89/55 Pulse Oximetry 91 Oxygen Delivery Me thod Room Air Oxygen Flow Rate Fraction of Inspir ed Oxygen Hydration adequate: Yes Nausea and vomiting: No Pain level: 1 Mental status: Baseline
== END 2024-06-16 08:15 | disposition home or self-care (01) ==
PROVIDERS: PCP Nurse Practitioner Family; Visit Provider Surgery
PROC: 0DJD8ZZ Inspection of Lower Intestinal Tract, Via Natural or Artificial Opening Endoscopic (ICD-10-PCS; CPT 45378; principal; 2024-06-16 07:45)
DX: Z12.11 Encounter for screening for malignant neoplasm of colon (principal); D12.4 Benign neoplasm of descending colon; D12.5 Benign neoplasm of sigmoid colon; D12.3 Benign neoplasm of transverse colon; F17.200 Nicotine dependence, unspecified, uncomplicated; J44.9 Chronic obstructive pulmonary disease, unspecified; I10 Essential (primary) hypertension; F41.9 Anxiety disorder, unspecified
CPT/HCPCS: 45380; 45385; 88305; J2371; J2704; J7040

== ENCOUNTER 2024-07-12 12:41 | Emergency (ER) | payer MEDICAID, SELFPAY ==
[2024-07-12 12:49] VITALS: BP 148/98; PULSE 83; RESP 15; TEMP 36.6; O2SAT 98; BMI 34.2
--- NOTE | 2024-07-12 13:28 | ECG_ITS ---
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 [id number]
--- NOTE | 2024-07-12 13:29 | CTR_ITS ---
PROCEDURE INFORMATION: Exam: CT Chest With Contrast; Diagnostic Exam date and time: 07/12/2024 1:45 PM Age: 53 years old Clinical indication: Cough and shortness of breath; Additional info: Cough, SOB, tachy TECHNIQUE: Imaging protocol: Diagnostic computed tomography of the chest with contrast. Radiation optimization: All CT scans at this facility use at least one of these dose optimization techniques: automated exposure control; mA and/or kV adjustment per patient size (includes targeted exams where dose is matched to clinical indication); or iterative reconstruction. Contrast material: OMNIPAQUE 350; Contrast volume: 100 ml; Contrast route: INTRAVENOUS (IV); COMPARISON: CR XR chest 1V portable [id number] 05/05/2024 4:23 PM RADIATION DOSE METRICS: Total DLP (mGy-cm): 713.77 FINDINGS: Thyroid: The visualized portions of the thyroid are unremarkable. Lungs: Moderate dependent atelectasis bilaterally. Mild paraseptal emphysematous changes throughout the lungs bilaterally. 11 mm calcified granuloma in the left upper lobe. Subpleural reticulation seen along the anterior upper lobes bilaterally. No focal consolidation. Pleural spaces: No pneumothorax. No pleural effusion. Heart: Unremarkable. No cardiomegaly. No pericardial effusion. Coronary arteries: [id number] coronary artery calcification. Lymph nodes: Unremarkable. No enlarged lymph nodes. Vasculature: Unremarkable. No aortic aneurysm. Bones/joints: Degenerative changes of the thoracic spine. Severe compression deformity the T7 vertebral body appearing chronic in nature. Soft tissues: Unremarkable. CT/CT chest w con* [id number] IMPRESSION: 1. Moderate paraseptal emphysema with subpleural reticulation seen in the inferior anterior upper lobes likely sequela of interstitial lung disease and/or scarring. 2. No focal consolidation or pneumothorax. Moderate dependent atelectasis bilaterally. 3. Moderate coronary artery calcification. 4. Chronic appearing compression fracture of T7. COMMENTS: The presence of pulmonary emphysema on CT is an independent risk factor for lung cancer. In the absence of a history or active diagnosis of lung cancer, it is recommended that this patient with emphysema be evaluated for enrollment in a low dose CT lung cancer screening program.
[2024-07-12 13:47] LABS: Basophils # 0.1 10^3/uL (0.0-0.1); Basophils % 0.7 %; Eosinophils # 0.3 10^3/uL (0.0-0.8); Eosinophils % 2.7 %; Hematocrit 45.4 % (37-53); Lymphocytes # 1.6 10^3/uL (0.8-4.8); Lymphocytes % 15.2 %; Mean Corpuscular Hemoglobin 29.9 pg (27-33); Mean Corpuscular Volume 90.4 fl (82-101); Neutrophils # 7.68 10^3/uL (1.8-7.7); Neutrophils % 71.9 %; Nucleated Red Blood Cells % 0 %; Platelet Count 100 10^3/cmm (157-399); Red Blood Count 5.02 10^6/uL (3.85-5.65); Red Cell Distribution Width 13.9 % (12.1-15.1); White Blood Count 10.67 10^3/uL (3.29-11.43)
[2024-07-12] MEDS: iohexol 350 mg/mL 500 mL Btl (per mL) IV (13:48)
--- NOTE | 2024-07-12 13:52 | ED_ITS ---
HPI - URI/Sore Throat 2 General: Chief Complaint: Upper Respiratory Infection Stated Complaint: fever, sore throat Time Seen by Provider: 07/12/24 13:05 History of Present Illness: Patient is a 53-year-old man that presents to the emergency department with complaints of cough, congestion, shortness of breath. History of COPD/emphysema and he is an everyday smoker. He was diagnosed with pneumonia back in April and just has not improved. Patient denies fevers but has chills. He denies nausea vomiting or diarrhea. Denies chest pain Medical history includes hyperlipidemia, hypertension, COPD, depression. Related Data Home Medications Medication Instructions Recorded Confirmed albuterol sulfate 1.25 mg/3 mL 1.25 mg inhalation QID PRN 06/29/23 07/12/24 solution for nebulization Shortness Of Breath Or Wheezing fluticasone fur. 100 mcg-umeclid 1 inh inhalation DAILY 06/29/23 07/12/24 62.5 mcg-vilant 25 mcg inhalat.powder (Trelegy Ellipta) atorvastatin 40 mg tablet 40 mg PO BEDTIME 06/11/24 07/12/24 hydrochlorothiazide 12.5 mg tablet 12.5 mg PO DAILY 06/11/24 07/12/24 losartan 50 mg tablet 50 mg PO DAILY 06/11/24 07/12/24 cyclobenzaprine 10 mg tablet 10 mg PO Q8H PRN Back Pain 07/12/24 07/12/24 gabapentin 100 mg capsule 100 mg PO BID 07/12/24 07/12/24 ketorolac 10 mg tablet 10 mg PO Q8H PRN Pain 07/12/24 07/12/24 multivitamin with minerals-folic 1 tab PO DAILY 07/12/24 07/12/24 acid 80 mcg chewable tablet (Centrum Adult 50 Plus) tiotropium bromide 18 mcg capsule See Rx Instructions .Route .COMPLEX 07/12/24 07/12/24 with inhalation device (Spiriva with HandiHaler) Previous Rx's Medication Instructions Recorded benzonatate 200 mg capsule 200 mg PO BID PRN cough #30 caps 05/05/24 ipratropium bromide 17 2 inh inhalation TID PRN shortness 07/12/24 mcg/actuation HFA aerosol inhaler of breath or wheezing #12.9 grams (Atrovent HFA) methylprednisolone 4 mg tablets in See Rx Instructions PO .COMPLEX 07/12/24 a dose pack (Medrol (Bubba)) #21 ea Allergies Allergy/AdvReac Type Severity Reaction Status Date / Time Penicillins Allergy Severe ALGY-Anaphy Verified 07/12/24 12:54 laxis celecoxib [From Celebrex] Allergy Intermediate ADR-Itching Verified 07/12/24 12:54 diclofenac [From Arthrotec] Allergy Intermediate ADR-Itching Verified 07/12/24 12:54 erythromycin base Allergy Intermediate ADR-Itching Verified 07/12/24 12:54 misoprostol [From Arthrotec] Allergy Intermediate ADR-Itching Verified 07/12/24 12:54 Review of Systems 2 General: Reports: 10 or more systems reviewed and unremarkable except in HPI and below PFSH ED 2 PFSH: Medical History Psychiatric care Social History Smoking and tobacco/nicotine status: never used tobacco/nicotine Alcohol intake: current Alcohol intake frequency: few times a month Alcohol type: beer Substance/Drug Use: never Physical Exam 2 Const: COMMON NORMALS: no acute distress, patient oriented x3 and alert G ENERAL APPEARANCE: cooperative ORIENTATION/CONSCIOUSNESS: Yes awake, Yes oriented to person, Yes oriented to place and Yes oriented to time HENMT: COMMON NORMALS: normocephalic and atraumatic HEAD & SCALP: n ormocephalic and atraumatic FACE & SINUS: normal facial exam MOUTH: Normal oral and palatal mucosa present THROAT: posterior oropharynx normal Eye: COMMON NORMALS: Equal, round and reactive pupils present, EOMs intact bilaterally, conjunctivae normal and no scleral icterus GENERAL EYE: a ppearance normal, both eyes and all related structures ALIGNMENT: Yes alignment normal PERIORBITAL: periorbital findings normal CONJUNCTIVA: Yes conjunctivae normal PUPIL: Yes Equal, round and reactive pupils present Neck/C-Spine: COMMON NORMALS: full ROM GENERAL: Yes normal visual inspection Lymph: LYMPHATIC: no lymphadenopathy noted Chest: COMMONS NORMALS: normal inspection of the chest Breast/axilla inspection: Yes no chest deformity, asymmetry, normal contours, no nodules, masses, tenderness Resp: COMMON NORMALS: normal respiratory effort, No retractions, No use of accessory muscles and clear to auscultation bilaterally EFFORT & INSPECTION: Yes able to speak in complete sentences and Yes symmetric chest movement A USCULTATION: clear to auscultation bilaterally Cardio: COMMON NORMALS: regular rate, regular rhythm and Peripheral pulses 2+ throughout RATE: regular rate RHYTHM: regular rhythm PERIPHERAL PULSES: Peripheral pulses 2+ throughout GI: COMMON NORMALS: Normal to inspection, nondistended, normoactive bowel sounds present, Soft to palpation, non-tender and No hepatosplenomegaly present INSPECTION: Yes normal to inspection AUSCULTATION: Yes normoactive bowel sounds PALPATION: Yes Soft to palpation and Yes No hepatosplenomegaly present RECTAL EXAM: Yes deferred Extremity: COMMON NORMALS: normal to inspection GENERAL: Yes normal exam except as noted Neuro: COMMON NORMALS: patient oriented x3 SENSORIUM/ORIENTATION: Yes alert, Yes oriented to person, Yes oriented to place and Yes oriented to time CRANIAL NERVES: Yes CN normal except as noted Psych: COMMON NORMALS: mental status grossly normal, Normal thought process present, cooperative, activity/motor behavior normal, denies homicidal ideation and denies suicidal ideation THOUGHT PROCESS: Normal thought process present Skin: COMMON NORMALS: no rashes or lesions noted, no wounds and turgor normal GENERAL SKIN EXAM: no rashes or lesions noted and turgor normal Course 2 Vital Signs: Vital signs: Vital Signs Temperature 97.9 F 07/12/24 12:49 Pulse Rate 88 07/12/24 15:52 Respiratory Rate 18 07/12/24 15:52 Blood Pressure 158/110 07/12/24 15:52 Pulse Oximetry 100 07/12/24 15:52 Oxygen Delivery Me thod Room Air 07/12/24 15:52 MDM - URI/Sore Throat Medical Decision Making Differential diagnosis includes pneumonia, bronchitis, influenza, COVID, RSV, heart failure, heart attack. Patient does have a history of COPD so another differential would be COPD exacerbation. EKG performed at 1335. It reveals a sinus rhythm at 75 beats minute and a QTc of 418. There is no ectopy, ST elevation or abnormal T wave inversion. CBC reveals no leukocytosis or anemias but patient is thrombocytopenic with a platelet count of 100,000. Chemistry panel reveals mild dehydration, mild elevation in glucose and mild decline of GFR. Creatinine is still within normal limits. There is no significant electrolyte abnormality. Troponin?initial was 8. The 2-hour was 1.5 BNP within normal limits And chest CT reveals emphysema and mild atelectasis. Patient does have documented COPD. He has been an everyday smoker and has also worked in [employer] where he has been exposed to toxic substances whether if he has missed doses or chemicals/fumes. Patient would likely benefit from referral to pulmonology for further evaluation. We are going to give the patient a dose of Solu-Medrol. He will go home on a short course of steroids. I am also going to give him an Atrovent inhaler to help. home manager has been consulted for assistance in setting up pain management for his chronic back pain and new primary care as he is dissatisfied with management he is currently receiving. Lab Data 07/12/24 13:35 07/12/24 13:[address] 07/12/24 13:29 IMPRESSION: 1. Moderate paraseptal emphysema with subpleural reticulation seen in the inferior anterior upper lobes likely sequela of interstitial lung disease and/or scarring. 2. No focal consolidation or pneumothorax. Moderate dependent atelectasis bilaterally. 3. Moderate coronary artery calcification. 4. Chronic appearing compression fracture of T7. COMMENTS: The presence of pulmonary emphysema on CT is an independent risk factor for lung cancer. In the absence of a history or active diagnosis of lung cancer, it is recommended that this patient with emphysema be evaluated for enrollment in a low dose CT lung cancer screening program. Laboratory Results WBC 10.67 10^3/uL (3.29-11.43) 07/12/24 13:35 RBC 5.02 10^6/uL (3.85-5.65) 07/12/24 13:35 Hgb 15.00 g/dL (11.27-16.99) 07/12/24 13:35 Hct 45.4 % (37-53) 07/12/24 13:35 MCV 90.4 fl (82-101) 07/12/24 13:35 MCH 29.9 pg (27-33) 07/12/24 13:35 MCHC 33.0 g/dL (30-55) 07/12/24 13:35 RDW 13.9 % (12.1-15.1) 07/12/24 13:35 Plt Count 100 10^3/cmm (157-399) L 07/12/24 13:35 MPV 10.0 fL (7.4-10.4) 07/12/24 13:35 Neut % (Auto) 71.9 % 07/12/24 13:35 Lymph % (Auto) 15.2 % 07/12/24 13:35 [place] % (Auto) 9.0 % 07/12/24 13:35 Eos % (Auto) 2.7 % 07/12/24 13:35 Baso % (Auto) 0.7 % 07/12/24 13:35 Neut # (Auto) 7.68 10^3/uL (1.8-7.7) 07/12/24 13:35 Lymph # (Auto) 1.6 10^3/uL (0.8-4.8) 07/12/24 13:35 [place] # (Auto) 1.0 10^3/uL (0.2-0.9) H 07/12/24 13:35 Eos # (Auto) 0.3 10^3/uL (0.0-0.8) 07/12/24 13:35 Baso # (Auto) 0.1 10^3/uL (0.0-0.1) 07/12/24 13:35 Nucleated RBC % (auto) 0 % 07/12/24 13:35 Nucleated RBCs # 0.0 /100WBC 07/12/24 13:35 Sodium 140 mmol/L (136-145) 07/12/24 13:35 Potassium 4.2 mmol/L (3.5-5.1) 07/12/24 13:35 Chloride 93 mmol/L (98-107) L 07/12/24 13:35 Carbon Dioxide 25 mmol/L (22-29) 07/12/24 13:35 Anion Gap 26.2 (5-19) H 07/12/24 13:35 BUN 10 mg/dL (6-20) 07/12/24 13:35 Creatinine 1.0 mg/dL (0.7-1.2) 07/12/24 13:35 GFR Calculation 77.6 mL/min (90-130) L 07/12/24 13:35 Glucose 125 mg/dL (65-115) H 07/12/24 13:35 Calculated Osmolality 291 mOsm/kg (285-295) 07/12/24 13:35 Calcium 9.2 mg/dL (8.5-10.5) 07/12/24 13:35 Total Bilirubin 0.5 mg/dL (0.15-1.2) 07/12/24 13:35 AST 18 U/L (0-40) 07/12/24 13:35 ALT 26 U/L (0-41) 07/12/24 13:35 Alkaline Phosphatase 123 U/L (40-130) 07/12/24 13:35 Troponin T Baseline 8 ng/L (0-15) 07/12/24 13:35 Troponin T 120 Minute 9.46 ng/L (0-15) 07/12/24 15:53 Delta Troponin T 1.46 ABS# (0-10) 07/12/24 15:53 NT-Pro-B Natriuret Pep 109 pg/mL (0-125) 07/12/24 13:35 Total Protein 7.6 g/dL (6.6-8.7) 07/12/24 13:35 Albumin 4.9 g/dL (3.5-5.2) 07/12/24 13:35 Globulin 2.7 g/dL (1.3-4.6) 07/12/24 13:35 Coronavirus (PCR) Negative (Negative) 07/12/24 13:35 Influenza A (PCR) Negative (Negative) 07/12/24 13:35 Influenza Type B (PCR) Negative (Negative) 07/12/24 13:35 RSV (PCR) Negative (Negative) 07/12/24 13:35 All radiology interpretation(s) finalized by discharge Discharge Plan Discharge Patient Disposition: Home Clinical Impression: Fatigue, Thrombocytopenia, COPD (chronic obstructive pulmonary disease), Chronic back pain, Chronic sore throat Condition: Stable Prescriptions: New Atrovent HFA 17 mcg/actuation HFA aerosol inhaler 2 inh inhalation TID PRN (Reason: shortness of breath or wheezing) Qty: 12.9 0RF methylprednisolone [Medrol (Bubba)] 4 mg tablets,dose pack See Rx Instructions .ROUTE .COMPLEX Qty: 21 0RF Rx Instructions: for 6 days No Action Trelegy Ellipta 100-62.5-25 mcg blister with device 1 inh inhalation DAILY albuterol sulfate 1.25 mg/3 mL solution for nebulization 1.25 mg inhalation QID PRN (Reason: Shortness Of Breath Or Wheezing) benzonatate 200 mg capsule 200 mg PO BID PRN (Reason: cough) Qty: 30 0RF losartan 50 mg tablet 50 mg PO DAILY atorvastatin 40 mg tablet 40 mg PO BEDTIME hydrochlorothiazide 12.5 mg tablet 12.5 mg PO DAILY cyclobenzaprine 10 mg tablet 10 mg PO Q8H PRN (Reason: Back Pain) ketorolac 10 mg tablet 10 mg PO Q8H PRN (Reason: Pain) gabapentin 100 mg capsule 100 mg PO BID tiotropium bromide [Spiriva with HandiHaler] 18 mcg capsule, w/inhalation device See Rx Instructions .ROUTE .COMPLEX Rx Instructions: Inhale contents of 1 capsule daily using 2 inhalations via handihaler. Centrum Adult 50 Plus 80 mcg Tablet,Chewable 1 tab PO DAILY Discharge Orders: Discharge ED (Routine); Ordered 07/12/24 Ordered By: Angie Guidry Referrals: Dioni Addison FNP [Primary Care Provider] - Discharge Diet: Advance as tolerated Discharge Activity: Resume usual activity Patient Instructions: COPD (Chronic Obstructive Pulmonary Disease) (ED), Chronic Back Pain (DC), Thrombocytopenia (ED), How Your Lungs Work (ED), Dyspnea Scale and Exercise (ED), Opioid Safety, Pain Management Activity Restrictions/Additional Instructions: I have asked the patient case manager here to contact you and help set up primary care, pain management, pulmonology. Please use your medications as prescribed Please return to the emergency department for new, concerning, worsening symptoms Coding Level of Care Code ED Dry Cell Sealer for Manny Pagan
[2024-07-12 14:07] LABS: Troponin(5th) Baseline 8 ng/L (0-15)
[2024-07-12 14:18] LABS: Covid PCR NEGATIVE (Negative); Influenza A NEGATIVE (Negative); Influenza B NEGATIVE (Negative); Respiratory Syncytial Virus Ce NEGATIVE (Negative)
[2024-07-12 14:20] LABS: Alanine Aminotransferase 26 U/L (0-41); Albumin Level 4.9 g/dL (3.5-5.2); Alkaline Phosphatase 123 U/L (40-130); Anion Gap 26.2 (5-19); Aspartate Amino Transferase 18 U/L (0-40); Blood Urea Nitrogen 10 mg/dL (6-20); Calcium 9.2 mg/dL (8.5-10.5); Carbon Dioxide 25 mmol/L (22-29); Chloride 93 mmol/L (98-107); Creatinine Clr Calc Pharmacy 106.0299; Globulin 2.7 g/dL (1.3-4.6); Glomerular Filtration Rate 77.6 mL/min (90-130); Glucose 125 mg/dL (65-115); NT Pro B Type Natriuretic Pept 109 pg/mL (0-125); Osmolality Calculated 291 mOsm/kg (285-295); Potassium 4.2 mmol/L (3.5-5.1); Sodium 140 mmol/L (136-145); Total Bilirubin 0.5 mg/dL (0.15-1.2); Total Protein 7.6 g/dL (6.6-8.7)
--- NOTE | 2024-07-12 15:31 | ECG_ITS ---
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 Measurements Intervals [place] Rate: 66 P: 54 NM: 132 QRS: 18 QRSD: 126 T: 38 QT: 399 QTc: 419 Interpretive Statements SINUS RHYTHM POSSIBLE LEFT VENTRICULAR HYPERTROPHY [VOLTAGE CRITERIA PLUS LAE OR QRS WIDENING] Compared to ECG 07/12/2024 13:35:16 Myocardial infarct finding no longer present Electronically Signed On 07-13-2024 17:27:09 DATASTAGE CONSULTANT by Laci Ma M.D. [id number]
[2024-07-12] MEDS: methylPREDNISolone sod succ 125 mg/2 mL INJ IVP (15:49)
[2024-07-12 15:52] VITALS: BP 158/110; PULSE 88; RESP 18; O2SAT 100
[2024-07-12 16:21] LABS: Troponin 5 2HR 9.46 ng/L (0-15); Troponin 5 2HR Delta 1.46 ABS# (0-10)
--- NOTE | 2024-07-13 07:03 | DCPLANNER ---
messaged [facility] to est pcp for er f/u
--- NOTE | 2024-07-16 13:47 | DCPLANNER ---
message [facility] to establish PCP
== END 2024-07-12 16:34 | disposition home or self-care (01) ==
PROVIDERS: Emergency Provider Nurse Practitioner; PCP Nurse Practitioner Family
DX: R53.83 Other fatigue (principal); D69.6 Thrombocytopenia, unspecified; J44.9 Chronic obstructive pulmonary disease, unspecified; M54.89 Other dorsalgia; J31.2 Chronic pharyngitis; Z11.52 Encounter for screening for COVID-19
CPT/HCPCS: 36415; 71260; 80053; 83880; 84484; 85025; 87637; 93005; 96374; 99285; J2919

== ENCOUNTER 2024-07-22 06:00 | Outpatient (RCR) | payer MEDICAID, SELFPAY | END 2024-08-07 23:59 | disposition home or self-care (01) | LOC: MPT 06:00 | PROVIDERS: Visit Provider Nurse Practitioner Family | DX: M54.9 Dorsalgia, unspecified (principal); G89.29 Other chronic pain | CPT/HCPCS: 97110; 97162; G0283 ==

== ENCOUNTER 2024-08-08 06:00 | Outpatient (RCR) | payer MEDICAID, SELFPAY | END 2024-09-04 23:59 | disposition home or self-care (01) | LOC: MPT 06:00 | PROVIDERS: Visit Provider Nurse Practitioner Family | DX: M54.9 Dorsalgia, unspecified (principal); G89.29 Other chronic pain | CPT/HCPCS: 97110; G0283 ==

== ENCOUNTER 2024-09-05 06:30 | Outpatient (RCR) | payer MEDICAID, SELFPAY | END 2024-10-05 23:59 | disposition home or self-care (01) | LOC: MPT 06:30 | PROVIDERS: Visit Provider Nurse Practitioner Family | DX: M54.9 Dorsalgia, unspecified (principal); G89.29 Other chronic pain | CPT/HCPCS: 97110; G0283 ==

== ENCOUNTER 2024-09-14 10:16 | Outpatient (CLI) | payer MEDICAID, SELFPAY ==
--- NOTE | 2024-09-14 10:24 | CT_ITS ---
WS: [id number] CT NECK TECHNIQUE: Contrast-enhanced CT of the neck with coronal and sagittal reformatted images. CLINICAL INFORMATION: PAIN IN THROAT COMPARISON: DLP: 263.[address] scans at [facility] use at least one of these dose optimization techniques: automated exposure control; mA and/or kV adjustment per patient size (includes targeted exams where dose is matched to clinical indication); or iterative reconstruction. FINDINGS: Diffuse thickening along the aryepiglottic folds bilaterally. Mild soft tissue thickening and induration in the periglottic space. Soft tissue thickening along the true vocal cords. This is indeterminant and recommend further evaluation with endoscopy. Subglottic airway is patent. Paranasal sinuses are well aerated. Mastoid air cells well aerated. Normal posterior nasopharynx. Normal parapharyngeal fat. Normal epiglottis. Normal vallecula. Normal thyroid gland. Parotid glands are normal. Normal submandibular glands. Mild carotid bulb calcification. Chronic emphysematous changes in the lung apices. Calcified granuloma LEFT upper lobe. Mild spondylitic changes cervical spine. No cervical lymphadenopathy. CT/CT neck w con* [id number] IMPRESSION: 1. Diffuse masslike soft tissue thickening at the level of the glottis and antonio epiglottic folds extending into the periglottic fat. Thickening of the vocal co rds and vocal folds. Neoplasm not excluded. Recommend further evaluation with e ndoscopy. 2. No other suspicious findings.
[2024-09-14] MEDS: iohexol 350 mg/mL 500 mL Btl (per mL) IV (11:03)
== END 2024-09-14 10:17 | disposition home or self-care (01) ==
PROVIDERS: Visit Provider Specialist
DX: R07.0 Pain in throat (principal); R93.89 Abnormal findings on diagnostic imaging of other specified body structures; I65.23 Occlusion and stenosis of bilateral carotid arteries; J43.8 Other emphysema; J84.10 Pulmonary fibrosis, unspecified; M47.892 Other spondylosis, cervical region
CPT/HCPCS: 70491

== ENCOUNTER → 2024-09-21 09:02 | Outpatient (BNVA) | payer MEDICAID, SELFPAY | PROVIDERS: Visit Provider Specialist | DX: M25.511 Pain in right shoulder (principal); G89.29 Other chronic pain | CPT/HCPCS: 73030 ==

== ENCOUNTER 2024-10-02 07:50 | Outpatient (CLI) | payer MEDICAID, SELFPAY ==
--- NOTE | 2024-10-02 08:00 | MR_ITS ---
WS: [id number] MRI RIGHT SHOULDER HISTORY: right shoulder pain COMPARISON: 09/21/2024 TECHNIQUE: Multiplanar sequences of the shoulder joint are submitted. Metallic marker artifact is noted surrounding the shoulder from prior surgery. Mild AC joint arthritis with osteophyte encroachment towards the supraspinatus muscle and tendon. Moderate subacromial impingement. Small amount of fluid in the subacromial and subdeltoid bursa. No os acromion. Nonvisualization of the biceps tendon in the bicipital groove. Moderate narrowing the glenohumeral joint with high riding humeral head. Very mild atrophy of the supraspinatus muscle. No muscle edema. Beyond the superior lateral humeral head supraspinatus tendon is not identified. Suspect complete tear with retraction. Infraspinatus tendon is intact. Tendinopathy in the distal subscapularis tendon. No tear subscapularis tendon. No labral tears. MR/MR shoulder RT wo con* [id number] IMPRESSION: 1. High riding humeral head. 2. Along the lateral humeral head. Consistent with complete tear with retracti on. 3. Tendinopathy in the subscapularis tendon but no tear. 4. Mild AC joint arthritis. 5. Micrometallic artifact throughout the shoulder from prior surgery. 6. No labral tear. 7. Mild AC joint arthritis. 8. Nonvisualization of the biceps tendon in the bicipital groove. Biceps tendo n is either dislocated or torn with retraction.
== END 2024-10-02 07:51 | disposition home or self-care (01) ==
PROVIDERS: PCP Nurse Practitioner Family; Visit Provider Specialist
DX: M19.011 Primary osteoarthritis, right shoulder (principal); R93.6 Abnormal findings on diagnostic imaging of limbs; Z98.890 Other specified postprocedural states; M25.711 Osteophyte, right shoulder; M75.41 Impingement syndrome of right shoulder; M62.511 Muscle wasting and atrophy, not elsewhere classified, right shoulder; M67.813 Other specified disorders of tendon, right shoulder
CPT/HCPCS: 73221

== ENCOUNTER 2024-10-06 05:00 | Outpatient (RCR) | payer MEDICAID, SELFPAY | END 2024-10-30 07:05 | disposition home or self-care (01) | LOC: MPT 05:00 | PROVIDERS: PCP Nurse Practitioner Family; Visit Provider Nurse Practitioner Family | DX: M54.9 Dorsalgia, unspecified (principal); G89.29 Other chronic pain | CPT/HCPCS: 97110; G0283 ==

== ENCOUNTER 2024-10-08 12:40 | Outpatient (CLI) | payer MEDICAID, SELFPAY ==
--- NOTE | 2024-10-08 12:45 | MR_ITS ---
WS: [id number] MRI LUMBAR SPINE NONCONTRAST TECHNIQUE: Sagittal T1, T2 and STIR imaging. Axial T1 and T2 imaging. CLINICAL INFORMATION: LUMBAR SPONDYLOSIS COMPARISON: None. FINDINGS: Mild lumbar curve. No acute compression. No high-grade central canal stenosis. Chronic compression with anterior wedging at T7 L1-L2: Normal. L2-L3: Mild annular bulging. Mild facet arthropathy. RIGHT eccentric disc bulge with mild RIGHT foraminal narrowing. L3-L4: Mild disc bulging with a small central protrusion with an annular fissure. Mild to moderate central canal stenosis with impingement on the subarticular recess bilaterally LEFT greater than RIGHT. Mild LEFT foraminal narrowing. Moderate facet arthropathy. L4-L5: Mild annular bulging. Mild to moderate central canal stenosis. Impingement on the traversing RIGHT L5 nerve root in the subarticular recess. Moderate facet arthropathy. Mild LEFT foraminal narrowing. L5-S1: Moderate facet arthropathy. Spinal canal and foramina are patent. Visualized pelvic bony structures: Normal. Paravertebral soft tissues: Normal. Slightly aneurysmal infrarenal abdominal aorta measuring 2.6 x 2.7 cm partially visualized MR/MR lumbar spine wo con* [id number] IMPRESSION: 1. Mild to moderate central canal stenosis with disc bulging L3-L4 and L4-L5. Small annular fissure at L3-4. 2. Impingement on the subarticular recess bilaterally L3-L4 and L4-L5 describe d above. 3. LEFT foraminal protrusion L3-4 with mild LEFT foraminal narrowing. 4. Mild LEFT L4-5 foraminal narrowing. 5. Moderate facet arthropathy L3-L5.
== END 2024-10-08 12:41 | disposition home or self-care (01) ==
LOC: RAD 12:42
PROVIDERS: PCP Nurse Practitioner Family; Visit Provider General Practice
DX: M47.816 Spondylosis without myelopathy or radiculopathy, lumbar region (principal); M48.061 Spinal stenosis, lumbar region without neurogenic claudication; M51.369 Other intervertebral disc degeneration, lumbar region without mention of lumbar back pain or lower extremity pain; R93.7 Abnormal findings on diagnostic imaging of other parts of musculoskeletal system; M51.A1 Intervertebral annulus fibrosus defect, small, lumbar region; M51.26 Other intervertebral disc displacement, lumbar region; M47.896 Other spondylosis, lumbar region; M43.8X6 Other specified deforming dorsopathies, lumbar region; M48.54XD Collapsed vertebra, not elsewhere classified, thoracic region, subsequent encounter for fracture with routine healing; M47.897 Other spondylosis, lumbosacral region
CPT/HCPCS: 72148

== ENCOUNTER 2024-11-02 07:35 | Outpatient (CLI) | payer MEDICAID, SELFPAY ==
--- NOTE | 2024-11-02 07:37 | MR_ITS ---
WS: [id number] MRI OF THE ORBITS FACE AND NECK WITHOUT GADOLINIUM ENHANCEMENT Contrast not administered due to inability to obtain IV access after numerous attempts INDICATION: Throat pain and difficulty swallowing TECHNIQUE: Axial T1 axial T2 coronal T2 fat-sat coronal T1 coronal T1 fat-sat sagittal T2 fat-sat FINDINGS: Normal posterior nasopharynx. Mild mucosal thickening in the paranasal sinuses. Mastoid air cells are well aerated. Normal vascular flow voids at the skull base. Normal vocal cords. Blunting with effacement of the LEFT piriform sinus with T2 hyperintense soft tissue fullness. Underlying lesion is not excluded. Recommend direct visualization. Subglottic airway is normal. Parotid glands are normal. Submandibular glands are normal. No cervical lymphadenopathy. Mild disc bulging C5-C6 and C6-C7. MR/[place] [id number] IMPRESSION: 1. Soft tissue fullness in the LEFT piriform sinus with effacement of the piri form sinus. Recommend direct visualization. 2. Otherwise no evidence of supraglottic or glottic mass. Normal subglottic ai rway. 3. No cervical lymphadenopathy. 4. No other acute findings.
== END 2024-11-02 07:36 | disposition home or self-care (01) ==
LOC: RAD 07:35
PROVIDERS: PCP Nurse Practitioner Family; Visit Provider Specialist
DX: R07.0 Pain in throat (principal); M79.89 Other specified soft tissue disorders; J34.89 Other specified disorders of nose and nasal sinuses; R93.89 Abnormal findings on diagnostic imaging of other specified body structures; M50.322 Other cervical disc degeneration at C5-C6 level; M50.323 Other cervical disc degeneration at C6-C7 level
CPT/HCPCS: 70336

== ENCOUNTER 2024-12-06 05:00 | Outpatient (RCR) | payer MEDICAID, SELFPAY | END 2025-01-04 23:59 | disposition home or self-care (01) | LOC: SPT 05:00 | PROVIDERS: Visit Provider Orthopaedic Surgery | DX: M25.511 Pain in right shoulder (principal); G89.29 Other chronic pain | CPT/HCPCS: 97110; 97161 ==

== ENCOUNTER 2025-01-05 05:00 | Outpatient (RCR) | payer MEDICAID, SELFPAY | END 2025-02-04 23:59 | disposition home or self-care (01) | LOC: SPT 05:00 | PROVIDERS: Visit Provider Orthopaedic Surgery | DX: M25.511 Pain in right shoulder (principal); G89.29 Other chronic pain | CPT/HCPCS: 97110 ==

== ENCOUNTER 2025-02-05 06:30 | Outpatient (RCR) | payer MEDICAID, SELFPAY | END 2025-02-17 09:45 | disposition home or self-care (01) | LOC: SPT 06:30 | PROVIDERS: Visit Provider Orthopaedic Surgery | DX: M25.511 Pain in right shoulder (principal); G89.29 Other chronic pain | CPT/HCPCS: 97110 ==

== ENCOUNTER 2025-02-25 10:12 | Emergency (ER) | payer MEDICAID, SELFPAY ==
--- OUTSIDE RECORDS SUMMARY | 2025-02-25 10:28 | XMS_ITS | Encounter Summary ---
Author Organization [facility] Address 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 Phone Unavailable Primary Care Provider Unavailabl e Reason for Referral * EMG (Routine) - Authorized Specialty Diagnoses / Procedures Referred By Contact Referred To Contact Physical Medicine and Rehabilitation Diagnoses Burning pain Right elbow pain Procedures EMG WITH NERVE CONDUCTION Shailesh Payton MD [address] [place] [address] Phone: tel: fax: [facility] [address] Phone: tel: fax: Referral ID Status Reason Start Date Expiration Date V isits Requested Visits Authorized [id number] Authorized 02/18/2025 03/21/2026 1 1 Encounter Details Date Type Department Care Team (Late st Contact Info) Description 02/18/2025 Orders Only [facility] [address] [place] [address] Shailesh Payton MD [address] [facility] [address] Burning pain (Primary Dx); Right elbow pain Social History Tobacco Use Types Packs/Day Years Used Date Smoking Tobacco: Every Day Cigarettes 1 43.4 Started: 1981 Passive Smoke Exposure: Past Smokeless Tobacco: Never Alcohol Use Standard Drinks/Week Comments Not Currently 2 (1 standard drink = 0.6 oz pur e alcohol) Feeling Safe Answer Date Recorded Are you in a relationship wi th someone who hurts you emotionally and/or physically? No 11/10/2024 Sex and Gender Information Value Date Recorded Sex Assigned at Not on file Legal Sex Male 3:20 PM [employer] Gender Identity Not on file Sexual Orientation Not on file documented as of this encounter Plan of Treatment Upcoming Encounters Date Type Department Care Team (Late st Contact Info) Description 03/11/2025 8:30 AM CDT Telephone Check Up [facility] Orthopedics - Orthopedic [facility] [address] [place] [phone] Blanca Robin [address] [place] [phone] 10/15/2025 8:00 AM CDT Office Visit [facility]mon[facility] [address] [place] [address] Sandra Ramos MD [address] [place] [address] Scheduled Orders Name Type Priority Associated Diagnoses Orde r Schedule EMG WITH NERVE CONDUCTION Neurology Routine Burning pain Right elbow pain 1 Occurrences starting 02/18/2025 until 02/18/2026 documented as of this encounter Visit Diagnoses Diagnosis Burning pain- Primary Generalized pain Right elbow pain Pain in joint, upper arm documented in this encounter
--- OUTSIDE RECORDS SUMMARY | 2025-02-25 10:28 | XMS_ITS | Patient Health Record ---
Author Organization [facility] Address [address] [place] [address] Care Team Providers Care Group Rooms Coordinator Name Role Phone Dioni Larsen Primary Care Provider Norah Duffy Unavailable [phone] Zeb Bro Unavailable [phone] Kenyatta Maxwell Unavailable Clara Mono Unavailable [phone] Allergies Allergen (clinical drug ingredient) Drug/Non Drug Allergy documented on EMR Reaction Allergy Type Onset Date Status azithromycin Azithromycin Unknown Drug Allergy A ctive celecoxib CeleBREX Unknown Drug Allergy Active diclofenac / misoprostol Arthrotec Unknown Drug Allergy Active Penicillin Unknown Drug Allergy Active Results Component Value Reference Range Flag Notes MRI Lumbar Spine w/o Cont-[id number] Reviewed date:09/01/2024 09:39:51 AM Interpretation: Performing Lab: Notes/Report: Urine Drug Screen (cup read) - [id number] Reviewed date:01/11/2025 09:10:54 AM Interpretation: Performing Lab: Notes/Report: AMP - CESAR - BUP - BZO - MDMA - OPI - PCP - OXY - MTD - MAMP - Urine Drug Screen (cup read) - [id number] Reviewed date:10/29/2024 09:25:50 AM Interpretation: Performing Lab: Notes/Report: OPI + OXY + Urine Drug Screen (cup read) - [id number] Reviewed date:02/25/2025 10:19:14 AM Interpretation: Performing Lab: Notes/Report: OPI + Urine Drug Screen (cup read) - [id number] Reviewed date:08/05/2024 09:50:27 AM Interpretation: Performing Lab: Notes/Report: AMP - CESAR - BUP - BZO - MDMA - OPI - PCP - OXY - MTD - MAMP - Urine Confirmation Panel (in strument) - [id number] Reviewed date:01/20/2025 04:53:17 PM Interpretation: Performing Lab: Notes/Report: 6-Acetylmorphine 0 <6 ng/mL N This nicolette t was developed and its performance characteristics determined by [facility]. It has not been cleared or approved by the U.S. Food and Drug Administration. 7-Aminoclonazepam 0 <60 ng/mL N This te st was developed and its performance characteristics determined by [facility]. It has not been cleared or approved by the U.S. Food and Drug Administration. Alprazolam 0 <60 ng/mL N This test was developed and its performance characteristics determined by [facility]. It has not been cleared or approved by the U.S. Food and Drug Administration. Amphetamine 0 <75 ng/mL N This test was developed and its performance characteristics determined by [facility]. It has not been cleared or approved by the U.S. Food and Drug Administration. aOH-Alprazolam 0 <60 ng/mL N This test was developed and its performance characteristics determined by [facility]. It has not been cleared or approved by the U.S. Food and Drug Administration. Buprenorphine 0.0 <7.5 ng/mL N This test w as developed and its performance characteristics determined by [facility]. It has not been cleared or approved by the U.S. Food and Drug Administration. Norbuprenorphine 0.0 <37.5 ng/mL N This te st was developed and its performance characteristics determined by [facility]. It has not been cleared or approved by the U.S. Food and Drug Administration. Carisoprodol 0 <75 ng/mL N This test wa s developed and its performance characteristics determined by [facility]. It has not been cleared or approved by the U.S. Food and Drug Administration. Codeine 0 <75 ng/mL N This test was developed and its performance characteristics determined by [facility]. It has not been cleared or approved by the U.S. Food and Drug Administration. EDDP 0 <75 ng/mL N This test was developed and its performance characteristics determined by [facility]. It has not been cleared or approved by the U.S. Food and Drug Administration. Fentanyl 0 <6 ng/mL N This test was developed and its performance characteristics determined by [facility]. It has not been cleared or approved by the U.S. Food and Drug Administration. Hydrocodone 904 <75 ng/mL H This test was developed and its performance characteristics determined by [facility]. It has not been cleared or approved by the U.S. Food and Drug Administration. Hydromorphone 91 <75 ng/mL H This test w as developed and its performance characteristics determined by [facility]. It has not been cleared or approved by the U.S. Food and Drug Administration. Lorazepam 0 <60 ng/mL N This test was developed and its performance characteristics determined by [facility]. It has not been cleared or approved by the U.S. Food and Drug Administration. MDMA 0 <75 ng/mL N This test was developed and its performance characteristics determined by [facility]. It has not been cleared or approved by the U.S. Food and Drug Administration. Meperidine 0.0 <37.5 ng/mL N This test was developed and its performance characteristics determined by [facility]. It has not been cleared or approved by the U.S. Food and Drug Administration. Meprobamate 0 <75 ng/mL N This test was developed and its performance characteristics determined by [facility]. It has not been cleared or approved by the U.S. Food and Drug Administration. Methamphetamine 0 <75 ng/mL N This test was developed and its performance characteristics determined by [facility]. It has not been cleared or approved by the U.S. Food and Drug Administration. Methadone 0 <75 ng/mL N This test was developed and its performance characteristics determined by [facility]. It has not been cleared or approved by the U.S. Food and Drug Administration. Morphine 0 <75 ng/mL N This test was developed and its performance characteristics determined by [facility]. It has not been cleared or approved by the U.S. Food and Drug Administration. Nordiazepam 0 <60 ng/mL N This test was developed and its performance characteristics determined by [facility]. It has not been cleared or approved by the U.S. Food and Drug Administration. Norfentanyl 0 <6 ng/mL N This test was developed and its performance characteristics determined by [facility]. It has not been cleared or approved by the U.S. Food and Drug Administration. Normeperidine 0.0 <37.5 ng/mL N This test was developed and its performance characteristics determined by [facility]. It has not been cleared or approved by the U.S. Food and Drug Administration. O-desmethyltramadol 0 <75 ng/mL N This test was developed and its performance characteristics determined by [facility]. It has not been cleared or approved by the U.S. Food and Drug Administration. Oxazepam 0 <60 ng/mL N This test was developed and its performance characteristics determined by [facility]. It has not been cleared or approved by the U.S. Food and Drug Administration. Oxycodone 0.0 <37.5 ng/mL N This test was developed and its performance characteristics determined by [facility]. It has not been cleared or approved by the U.S. Food and Drug Administration. Oxymorphone 0 <75 ng/mL N This test was developed and its performance characteristics determined by [facility]. It has not been cleared or approved by the U.S. Food and Drug Administration. Phencyclidine 0.0 <7.5 ng/mL N This test w as developed and its performance characteristics determined by [facility]. It has not been cleared or approved by the U.S. Food and Drug Administration. Tapentadol 0.0 <37.5 ng/mL N This test was developed and its performance characteristics determined by [facility]. It has not been cleared or approved by the U.S. Food and Drug Administration. Temazepam 0 <60 ng/mL N This test was developed and its performance characteristics determined by [facility]. It has not been cleared or approved by the U.S. Food and Drug Administration. Tramadol 0 <75 ng/mL N This test was developed and its performance characteristics determined by [facility]. It has not been cleared or approved by the U.S. Food and Drug Administration. Norhydrocodone >5000 <75 ng/mL > This test was developed and its performance characteristics determined by [facility]. It has not been cleared or approved by the U.S. Food and Drug Administration. Noroxycodone 0 <38 ng/mL N This test wa s developed and its performance characteristics determined by [facility]. It has not been cleared or approved by the U.S. Food and Drug Administration. Pregabalin 0 <225 ng/mL N This test was developed and its performance characteristics determined by [facility]. It has not been cleared or approved by the U.S. Food and Drug Administration. Gabapentin >86699 <225 ng/mL > This test was developed and its performance characteristics determined by [facility]. It has not been cleared or approved by the U.S. Food and Drug Administration. Benzoylecgonine 0.0 <37.5 ng/mL N This nicolette t was developed and its performance characteristics determined by [facility]. It has not been cleared or approved by the U.S. Food and Drug Administration. 4-Hydroxy Xylazine 0 <25 ng/mL N This t est was developed and its performance characteristics determined by [facility]. It has not been cleared or approved by the U.S. Food and Drug Administration. Urine Confirmation Panel (in strument) - [id number] Reviewed date:11/03/2024 11:04:17 AM Interpretation: Performing Lab: Notes/Report: 6-Acetylmorphine 0 <6 ng/mL N This nicolette t was developed and its performance characteristics determined by [facility]. It has not been cleared or approved by the U.S. Food and Drug Administration. 7-Aminoclonazepam 0 <60 ng/mL N This te st was developed and its performance characteristics determined by [facility]. It has not been cleared or approved by the U.S. Food and Drug Administration. Alprazolam 0 <60 ng/mL N This test was developed and its performance characteristics determined by [facility]. It has not been cleared or approved by the U.S. Food and Drug Administration. Amphetamine 0 <75 ng/mL N This test was developed and its performance characteristics determined by [facility]. It has not been cleared or approved by the U.S. Food and Drug Administration. aOH-Alprazolam 0 <60 ng/mL N This test was developed and its performance characteristics determined by [facility]. It has not been cleared or approved by the U.S. Food and Drug Administration. Buprenorphine 0.0 <7.5 ng/mL N This test w as developed and its performance characteristics determined by [facility]. It has not been cleared or approved by the U.S. Food and Drug Administration. Norbuprenorphine 0.0 <37.5 ng/mL N This te st was developed and its performance characteristics determined by [facility]. It has not been cleared or approved by the U.S. Food and Drug Administration. Carisoprodol 0 <75 ng/mL N This test wa s developed and its performance characteristics determined by [facility]. It has not been cleared or approved by the U.S. Food and Drug Administration. Codeine 0 <75 ng/mL N This test was developed and its performance characteristics determined by [facility]. It has not been cleared or approved by the U.S. Food and Drug Administration. EDDP 0 <75 ng/mL N This test was developed and its performance characteristics determined by [facility]. It has not been cleared or approved by the U.S. Food and Drug Administration. Fentanyl 0 <6 ng/mL N This test was developed and its performance characteristics determined by [facility]. It has not been cleared or approved by the U.S. Food and Drug Administration. Hydrocodone 1121 <75 ng/mL H This test was developed and its performance characteristics determined by [facility]. It has not been cleared or approved by the U.S. Food and Drug Administration. Hydromorphone 299 <75 ng/mL H This test w as developed and its performance characteristics determined by [facility]. It has not been cleared or approved by the U.S. Food and Drug Administration. Lorazepam 0 <60 ng/mL N This test was developed and its performance characteristics determined by [facility]. It has not been cleared or approved by the U.S. Food and Drug Administration. MDMA 0 <75 ng/mL N This test was developed and its performance characteristics determined by [facility]. It has not been cleared or approved by the U.S. Food and Drug Administration. Meperidine 0.0 <37.5 ng/mL N This test was developed and its performance characteristics determined by [facility]. It has not been cleared or approved by the U.S. Food and Drug Administration. Meprobamate 0 <75 ng/mL N This test was developed and its performance characteristics determined by [facility]. It has not been cleared or approved by the U.S. Food and Drug Administration. Methamphetamine 0 <75 ng/mL N This test was developed and its performance characteristics determined by [facility]. It has not been cleared or approved by the U.S. Food and Drug Administration. Methadone 0 <75 ng/mL N This test was developed and its performance characteristics determined by [facility]. It has not been cleared or approved by the U.S. Food and Drug Administration. Morphine 0 <75 ng/mL N This test was developed and its performance characteristics determined by [facility]. It has not been cleared or approved by the U.S. Food and Drug Administration. Nordiazepam 0 <60 ng/mL N This test was developed and its performance characteristics determined by [facility]. It has not been cleared or approved by the U.S. Food and Drug Administration. Norfentanyl 0 <6 ng/mL N This test was developed and its performance characteristics determined by [facility]. It has not been cleared or approved by the U.S. Food and Drug Administration. Normeperidine 0.0 <37.5 ng/mL N This test was developed and its performance characteristics determined by [facility]. It has not been cleared or approved by the U.S. Food and Drug Administration. O-desmethyltramadol 83 <75 ng/mL H This test was developed and its performance characteristics determined by [facility]. It has not been cleared or approved by the U.S. Food and Drug Administration. Oxazepam 0 <60 ng/mL N This test was developed and its performance characteristics determined by [facility]. It has not been cleared or approved by the U.S. Food and Drug Administration. Oxycodone 0.0 <37.5 ng/mL N This test was developed and its performance characteristics determined by [facility]. It has not been cleared or approved by the U.S. Food and Drug Administration. Oxymorphone 0 <75 ng/mL N This test was developed and its performance characteristics determined by [facility]. It has not been cleared or approved by the U.S. Food and Drug Administration. Phencyclidine 0.0 <7.5 ng/mL N This test w as developed and its performance characteristics determined by [facility]. It has not been cleared or approved by the U.S. Food and Drug Administration. Tapentadol 0.0 <37.5 ng/mL N This test was developed and its performance characteristics determined by [facility]. It has not been cleared or approved by the U.S. Food and Drug Administration. Temazepam 0 <60 ng/mL N This test was developed and its performance characteristics determined by [facility]. It has not been cleared or approved by the U.S. Food and Drug Administration. Tramadol 3462 <75 ng/mL H This test was developed and its performance characteristics determined by [facility]. It has not been cleared or approved by the U.S. Food and Drug Administration. Norhydrocodone 136 <75 ng/mL H This test was developed and its performance characteristics determined by [facility]. It has not been cleared or approved by the U.S. Food and Drug Administration. Noroxycodone 0 <38 ng/mL N This test wa s developed and its performance characteristics determined by [facility]. It has not been cleared or approved by the U.S. Food and Drug Administration. Pregabalin 0 <225 ng/mL N This test was developed and its performance characteristics determined by [facility]. It has not been cleared or approved by the U.S. Food and Drug Administration. Gabapentin >93935 <225 ng/mL > This test was developed and its performance characteristics determined by [facility]. It has not been cleared or approved by the U.S. Food and Drug Administration. Benzoylecgonine 0.0 <37.5 ng/mL N This nicolette t was developed and its performance characteristics determined by [facility]. It has not been cleared or approved by the U.S. Food and Drug Administration. 4-Hydroxy Xylazine 0 <25 ng/mL N This t est was developed and its performance characteristics determined by [facility]. It has not been cleared or approved by the U.S. Food and Drug Administration. Urine Confirmation Panel (in strument) - [id number] Reviewed date:10/05/2024 08:01:10 AM Interpretation: Performing Lab: Notes/Report: 6-Acetylmorphine 0 <6 ng/mL N This nicolette t was developed and its performance characteristics determined by [facility]. It has not been cleared or approved by the U.S. Food and Drug Administration. 7-Aminoclonazepam 0 <60 ng/mL N This te st was developed and its performance characteristics determined by [facility]. It has not been cleared or approved by the U.S. Food and Drug Administration. Alprazolam 0 <60 ng/mL N This test was developed and its performance characteristics determined by [facility]. It has not been cleared or approved by the U.S. Food and Drug Administration. Amphetamine 0 <75 ng/mL N This test was developed and its performance characteristics determined by [facility]. It has not been cleared or approved by the U.S. Food and Drug Administration. aOH-Alprazolam 0 <60 ng/mL N This test was developed and its performance characteristics determined by [facility]. It has not been cleared or approved by the U.S. Food and Drug Administration. Buprenorphine 2.3 <7.5 ng/mL N This test w as developed and its performance characteristics determined by [facility]. It has not been cleared or approved by the U.S. Food and Drug Administration. Norbuprenorphine 0.0 <37.5 ng/mL N This te st was developed and its performance characteristics determined by [facility]. It has not been cleared or approved by the U.S. Food and Drug Administration. Carisoprodol 0 <75 ng/mL N This test wa s developed and its performance characteristics determined by [facility]. It has not been cleared or approved by the U.S. Food and Drug Administration. Codeine 0 <75 ng/mL N This test was developed and its performance characteristics determined by [facility]. It has not been cleared or approved by the U.S. Food and Drug Administration. EDDP 0 <75 ng/mL N This test was developed and its performance characteristics determined by [facility]. It has not been cleared or approved by the U.S. Food and Drug Administration. Fentanyl 0 <6 ng/mL N This test was developed and its performance characteristics determined by [facility]. It has not been cleared or approved by the U.S. Food and Drug Administration. Hydrocodone 17 <75 ng/mL N This test was developed and its performance characteristics determined by [facility]. It has not been cleared or approved by the U.S. Food and Drug Administration. Hydromorphone 0 <75 ng/mL N This test w as developed and its performance characteristics determined by [facility]. It has not been cleared or approved by the U.S. Food and Drug Administration. Lorazepam 0 <60 ng/mL N This test was developed and its performance characteristics determined by [facility]. It has not been cleared or approved by the U.S. Food and Drug Administration. MDMA 0 <75 ng/mL N This test was developed and its performance characteristics determined by [facility]. It has not been cleared or approved by the U.S. Food and Drug Administration. Meperidine 0.0 <37.5 ng/mL N This test was developed and its performance characteristics determined by [facility]. It has not been cleared or approved by the U.S. Food and Drug Administration. Meprobamate 0 <75 ng/mL N This test was developed and its performance characteristics determined by [facility]. It has not been cleared or approved by the U.S. Food and Drug Administration. Methamphetamine 0 <75 ng/mL N This test was developed and its performance characteristics determined by [facility]. It has not been cleared or approved by the U.S. Food and Drug Administration. Methadone 0 <75 ng/mL N This test was developed and its performance characteristics determined by [facility]. It has not been cleared or approved by the U.S. Food and Drug Administration. Morphine 0 <75 ng/mL N This test was developed and its performance characteristics determined by [facility]. It has not been cleared or approved by the U.S. Food and Drug Administration. Nordiazepam 0 <60 ng/mL N This test was developed and its performance characteristics determined by [facility]. It has not been cleared or approved by the U.S. Food and Drug Administration. Norfentanyl 0 <6 ng/mL N This test was developed and its performance characteristics determined by [facility]. It has not been cleared or approved by the U.S. Food and Drug Administration. Normeperidine 0.0 <37.5 ng/mL N This test was developed and its performance characteristics determined by [facility]. It has not been cleared or approved by the U.S. Food and Drug Administration. O-desmethyltramadol 380 <75 ng/mL H This test was developed and its performance characteristics determined by [facility]. It has not been cleared or approved by the U.S. Food and Drug Administration. Oxazepam 0 <60 ng/mL N This test was developed and its performance characteristics determined by [facility]. It has not been cleared or approved by the U.S. Food and Drug Administration. Oxycodone 0.0 <37.5 ng/mL N This test was developed and its performance characteristics determined by [facility]. It has not been cleared or approved by the U.S. Food and Drug Administration. Oxymorphone 0 <75 ng/mL N This test was developed and its performance characteristics determined by [facility]. It has not been cleared or approved by the U.S. Food and Drug Administration. Phencyclidine 0.0 <7.5 ng/mL N This test w as developed and its performance characteristics determined by [facility]. It has not been cleared or approved by the U.S. Food and Drug Administration. Tapentadol 0.0 <37.5 ng/mL N This test was developed and its performance characteristics determined by [facility]. It has not been cleared or approved by the U.S. Food and Drug Administration. Temazepam 0 <60 ng/mL N This test was developed and its performance characteristics determined by [facility]. It has not been cleared or approved by the U.S. Food and Drug Administration. Tramadol 624 <75 ng/mL H This test was developed and its performance characteristics determined by [facility]. It has not been cleared or approved by the U.S. Food and Drug Administration. Norhydrocodone 3 <75 ng/mL N This test was developed and its performance characteristics determined by [facility]. It has not been cleared or approved by the U.S. Food and Drug Administration. Noroxycodone 0 <38 ng/mL N This test wa s developed and its performance characteristics determined by [facility]. It has not been cleared or approved by the U.S. Food and Drug Administration. Pregabalin 0 <225 ng/mL N This test was developed and its performance characteristics determined by [facility]. It has not been cleared or approved by the U.S. Food and Drug Administration. Gabapentin >33871 <225 ng/mL > This test was developed and its performance characteristics determined by [facility]. It has not been cleared or approved by the U.S. Food and Drug Administration. Benzoylecgonine 0.0 <37.5 ng/mL N This nicolette t was developed and its performance characteristics determined by [facility]. It has not been cleared or approved by the U.S. Food and Drug Administration. 4-Hydroxy Xylazine 0 <25 ng/mL N This t est was developed and its performance characteristics determined by [facility]. It has not been cleared or approved by the U.S. Food and Drug Administration. Tox Results Reviewed date:01/20/2025 04:54:44 PM Interpretation: Performing Lab: Notes/Report: Tox Results Reviewed date:11/03/2024 02:27:49 PM Interpretation: Performing Lab: Notes/Report: Tox Results Reviewed date:09/08/2024 11:36:24 AM Interpretation: Performing Lab: Notes/Report: Reason For Referral Reason eval and treat Diagnosis 1 Chronic pain syndrom e (G89.4) Referred Organization [facility] Referred Provider Berto Maxwell Referred Address [address] [place] [address],[place],[phone], Referred Provider Specialty Pain Medicin e Referral Priority Routine Reason Eval and treat Right shoulder Diagnosis 1 Chronic pain syndrom e (G89.4) Referral Organization [facility] Referring Provider First Name Zeb Referring Provider Last Name Dieudonne Referring Provider Speciality [facility] Specialty Orthopedic S urgery Referral Priority Routine Reason Eval and treat right shoulder pain Refer to Dr. Payton Diagnosis 1 Pain, joint, shoulde r, right (M25.511) Referral Organization [facility] Referring Provider First Name Zeb Referring Provider Last Name Dieudonne Referring Provider Speciality [facility] Referral Priority Routine Medications Medication SIG (Take, Route, Frequency, Duration) Notes Start Date End Date Status Ibuprofen 800 MG Tablet 1 tablet with fo od or milk as needed Orally every 8 hrs Active HYDROcodone-Acetaminophe n 7.5-325 MG Tablet 1 tablet Orally every 8 hrs; Duration: 30 days As needed Not to exceed 3 per day Fill on 04/05/2025 04/05/2025 05/05/2025 Active Cyclobenzaprine HCl 10 MG Tablet 1 tablet at bedtime as needed Orally Once a day Active Ketorocaine-L 30 & 1 MG/ML Kit as directed Injection Active Ibuprofen 600 MG Tablet 1 tablet with fo od or milk as needed Orally Three times a day Active DULoxetine HCl 30 MG Capsule Delayed Release Particles 1 capsule Orally Once a day Active HYDROcodone-Acetaminophe n 7.5-325 MG Tablet 1 tablet Orally every 8 hrs; Duration: 30 days As needed Not to exceed 3 per day Fill on 03/06/2025 03/06/2025 04/05/2025 Active traZODone HCl 50 MG Tablet 1 tablet at bedtime as needed Orally Once a day Active Tylenol 8 Hour 650 MG Tablet Extended Release 2 tablets as needed Orally every 8 hrs Active Problems Problem Type SNOMED Code ICD Code Onset Dates Problem Status W/U Status Risk Notes Problem Chronic pain syndrome (013867005) Chronic pain syndrome (G89.4) Active confirmed Problem Lumbar radiculopathy (963923232) Lumbar radiculopathy (M54.16) Active confirmed Problem Lumbar spondylosis (505285866) Lumbar spondylosis (M47.816) Active confirmed Problem Thoracic radiculopathy (25871163) Radiculopathy of thoracic region (M54.14) Active confirmed Problem Abnormal gait (62148161) Abnormality of gait and mobility (R26.9) Active confirmed Vital Signs Height-cm 177.8 cm 01/11/2025 Weight-kg 114.76 kg 01/11/2025 Height 70 in 01/11/2025 Weight 253 lbs 01/11/2025 BMI 36.3 kg/m2 01/11/2025 Encounters Encounter Location Date Provider Diagnosis [facility] [address] [address] 02/25/2025 Norah Therese Chronic pain syndrome G89.4 ; Radiculopathy of thoracic region M54.14 ; Lumbar radiculopathy M54.16 ; Abnormality of gait and mobility R26.9 ; Compression fracture of T7 vertebra, sequela S22.060S ; snf (current) use of opiate analgesic Z79.891 and Lumbar spondylosis M47.816 [facility] [address] [address] 08/05/2024 Zeb Bro Chronic pain syndrome G89.4 ; Lumbar radiculopathy M54.16 ; Radiculopathy of thoracic region M54.14 ; Lumbar spondylosis M47.816 ; Compression fracture of T7 vertebra, sequela S22.060S ; Abnormality of gait and mobility R26.9 and snf (current) use of opiate analgesic Z79.891 [facility] [address] [address] 09/02/2024 Zeb Bro Chronic pain syndrome G89.4 ; Radiculopathy of thoracic region M54.14 ; Lumbar radiculopathy M54.16 ; Lumbar spondylosis M47.816 ; Abnormality of gait and mobility R26.9 ; Compression fracture of T7 vertebra, sequela S22.060S and 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) use of opiate analgesic Z79.891 [facility] [address] [address] 10/07/2024 Zeb Krafft Chronic pain syndrome G89.4 ; Radiculopathy of thoracic region M54.14 ; Lumbar radiculopathy M54.16 ; Lumbar spondylosis M47.816 ; Abnormality of gait and mobility R26.9 ; Compression fracture of T7 vertebra, sequela S22.060S and 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) use of opiate analgesic Z79.891 [facility] [address] [address] 10/29/2024 Norah Saleh Chronic pain syndrome G89.4 ; Radiculopathy of thoracic region M54.14 ; Lumbar radiculopathy M54.16 ; Abnormality of gait and mobility R26.9 ; Compression fracture of T7 vertebra, sequela S22.060S ; snf (current) use of opiate analgesic Z79.891 and Lumbar spondylosis M47.816 [facility] [address] [address] 12/02/2024 Zeb Romerofft Chronic pain syndrome G89.4 ; Radiculopathy of thoracic region M54.14 ; Lumbar radiculopathy M54.16 ; Abnormality of gait and mobility R26.9 ; Compression fracture of T7 vertebra, sequela S22.060S ; snf (current) use of opiate analgesic Z79.891 and Lumbar spondylosis M47.816 [facility] [address] [place] [address] 01/11/2025 Mono Elizabeth Chronic pain syndrome G89.4 ; Radiculopathy of thoracic region M54.14 ; Lumbar radiculopathy M54.16 ; Abnormality of gait and mobility R26.9 ; Compression fracture of T7 vertebra, sequela S22.060S ; snf (current) use of opiate analgesic Z79.891 and Lumbar spondylosis M47.816 [facility] [place] [address] [place] [address] 02/25/2025 Zeb Bro Radiculopathy of thoracic region M54.14 [facility] [place] [address] [place] [address] 08/13/2024 Zeb Bro Chronic pain syndrome G89.4 [facility] [place] [address] [place] [address] 09/03/2024 Kenyatta jett Lumbar radiculopathy M54.16 [facility] [address] [place] [address] 09/16/2024 Zeb Bro Lumbar spondylosis M47.816 [facility] [address] [place] [address] 10/15/2024 Zeb Bro [facility] [place] [address] [place] [address], [place] [address] 10/29/2024 Zeb Bro Radiculopathy of thoracic region M54.14 [facility] [address] [place] [address] 12/28/2024 Zeb Bro Radiculopathy of thoracic region M54.14 [facility] [place] [address] [place] [address] 01/11/2025 Zeb Nickfft Radiculopathy of thoracic region M54.14 Assessments Encounter Date Diagnosis (ICD Code) Assessment Notes Treatment Notes Treatment Clinical Notes Section Notes 08/13/2024 Chronic pain syndrome (ICD-10 - G89.4) 08/05/2024 Chronic pain syndrome (ICD-10 - G89.4) I had a nice visit with the patient today regarding his chronic pain issues. Based on his history and physical exam, as well as X-rays which I reviewed, the worst of his symptoms appear consistent with lumbar spondylosis mainly on the left side of his lumbosacral region. He does have some pain in his mid back as well at the level of a chronic T7 vertebral compression fracture. At this point it would seem reasonable, based on his X-rays and worsening symptoms, to move forward with a lumbar MRI. We will get this scheduled in the near future and see him back in about a month. We did provide a prescription for some tramadol for his worst times to assist with getting him through until we can figure something else out. Order lumbar MRI 08/05/2024 Lumbar radiculopathy (ICD-10 - M54.16) 09/03/2024 Lumbar radiculopathy (ICD-10 - M54.16) 09/16/2024 Lumbar spondylosis (ICD-10 - M47.816) 10/07/2024 Chronic pain syndrome (ICD-10 - G89.4) I had a nice visit with the patient today regarding his chronic pain issues. We reviewed his shoulder MRI and it appears that he has fairly notable tendinopathy in his rotator cuff and he also appears to have a complete tear of the long head of his biceps tendon. He is not inclined to consider a reverse total shoulder if possible and is interested in exploring other options and requested a second opinion, so we will send him to the orthopedic group in [place]. Otherwise, he was requesting a different medication than the tramadol as he is not getting much relief with that. We will try switching him over to hydrocodone for the month and see how he does. We will proceed accordingly from there. Refer to orthopedics in [place] 10/29/2024 Radiculopathy of thoracic region (ICD-10 - M54.14) 10/29/2024 Chronic pain syndrome (ICD-10 - G89.4) I had a nice discussion with the patient today regarding his chronic pain complaints. He states he did see orthopedic surgeon Dr. Payton and will be having shoulder surgery on November 10. I did go over postsurgical pain protocol with him. He does feel the hydrocodone is helping him quite a bit more than what the tramadol was. He also states recent imaging that he had showed an abdominal aortic aneurysm and he states he would likely be having this checked out soon. He will keep us updated on this. He denies any other changes since we last seen him or any untoward side effects of the medication. He will continue his medication at present level and return to clinic in 1 month to monitor for treatment effectiveness and compliance. The patient continues with chronic pain requiring treatment to help restore function and improve quality of life. Risks of opioid therapy as well as interaction of opioids with alcohol, illicit drugs, muscle relaxers, and other sedative medications are reviewed briefly with patient again today. The patient has trialed all other reasonable treatment options and uses the medication to alleviate pain in order to remain active and rest with less pain. No clinically relevant medication side effects are noted. Last UDS and [employer] DOCUMENT CONTROL ASSOCIATE reviewed today. Patient is advised that best long-term goals include increased activity, core strengthening, proper weight management, coping strategies, avoidance of painful triggers, and targeted interventional therapy. We will see the patient for routine follow up in accordance with all clinic policies. We did remind patient today of current guidelines to decrease opioid when possible. We will continue to stress nonopioid treatment. RECOMMEND URINE TESTING TODAY Urine drug screening will be performed today to monitor compliance with opioid therapy or to serve as a baseline screen for a patient who may be a candidate for opioid therapy in the future, pending UDS results. We will monitor with in-office testing (rapid testing) today and review the results prior to dispensing prescription. All positive results will be sent for quantitative analysis to ensure accuracy and quantify amounts. Any expected positive results that return negative will also be sent for quantitative analysis. Any questionable read or any medication we cannot test for in the office confidently will be sent for quantitative analysis, as well. Patient has been made aware of this policy and agrees to abide by our urine testing policy. 10/29/2024 Radiculopathy of thoracic region (ICD-10 - M54.14) 09/02/2024 Chronic pain syndrome (ICD-10 - G89.4) I had a nice visit with the patient today regarding his chronic pain issues. He's been trying to get the MRI done but has not had any success yet. We will continue to await that and hopefully he will be able to get that in before next month. He is doing it here locally so I am not overly optimistic about getting it quick. We will bump up his tramadol to 3x a day for this next month and see how he does. 09/02/2024 Radiculopathy of thoracic region (ICD-10 - M54.14) 12/02/2024 Chronic pain syndrome (ICD-10 - G89.4) I had a nice visit with the patient today regarding his chronic pain issues. He had shoulder surgery and is still healing up from that. He has been taking percocet from the surgery and is taking less and less of that. So he is obviously making some headway. He is waiting to start PT and is unsure what his surgeon wants to do with the medications, he's due for a refill this week, so we will plan to see him back in about 6 weeks and likely begin looking at his lumbar spine. Potentially to target the facet arthropathy, but we'll see how his shoulder is progressing and proceed accordingly. 12/28/2024 Radiculopathy of thoracic region (ICD-10 - M54.14) 01/11/2025 Chronic pain syndrome (ICD-10 - G89.4) I had a nice discussion with patient today regarding his chronic pain complaints. He reports that he started physical therapy for his shoulder about 2 weeks ago and that has caused increased pain. He was asking for more medication to help him on the physical therapy days but discussed with patient that he needs to try and manage his pain on his current regimen. He is also supplementing with ibuprofen and is hoping that the pain will get better with time. Once he has completed his treatments, he would like to address his low back pain at that time. We will plan on seeing him back in about 6 to 7 weeks to review his progress with physical therapy and address his low back pain. The patient continues with chronic pain requiring treatment to help restore function and improve quality of life. Risks of opioid therapy as well as interaction of opioids with alcohol, illicit drugs, muscle relaxers, and other sedative medications are reviewed briefly with patient again today. The patient has trialed all other reasonable treatment options and uses the medication to alleviate pain in order to remain active and rest with less pain. No clinically relevant medication side effects are noted. Last UDS and [place] DOCUMENT CONTROL ASSOCIATE reviewed today. Patient is advised that best long-term goals include increased activity, core strengthening, proper weight management, coping strategies, avoidance of painful triggers, and targeted interventional therapy. We will see the patient for routine follow up in accordance with all clinic policies. We did remind patient today of current guidelines to decrease opioid when possible. We will continue to stress nonopioid treatment. 01/11/2025 Radiculopathy of thoracic region (ICD-10 - M54.14) 02/25/2025 Chronic pain syndrome (ICD-10 - G89.4) I had a nice discussion with the patient today regarding his chronic pain complaints. He continues with mid back, lower back, shoulder pain. He has continued with physical therapy for his shoulder. He is very sick today and states he has pneumonia and is on antibiotics. However, he feels he is worsening and is following up with his PCP today. He denies any other changes since we last seen him or any untoward side effects of the medication. I did review his most recent imaging with him again today. I did discuss lifestyle modifications as well as a bowel regimen. He will continue his medication at present level and return to clinic in 2 months to monitor for treatment effectiveness and compliance. The patient continues with chronic pain requiring treatment to help restore function and improve quality of life. Risks of opioid therapy as well as interaction of opioids with alcohol, illicit drugs, muscle relaxers, and other sedative medications are reviewed briefly with patient again today. The patient has trialed all other reasonable treatment options and uses the medication to alleviate pain in order to remain active and rest with less pain. No clinically relevant medication side effects are noted. Last UDS and [employer] DOCUMENT CONTROL ASSOCIATE reviewed today. Patient is advised that best long-term goals include increased activity, core strengthening, proper weight management, coping strategies, avoidance of painful triggers, and targeted interventional therapy. We will see the patient for routine follow up in accordance with all clinic policies. We did remind patient today of current guidelines to decrease opioid when possible. We will continue to stress nonopioid treatment. URINE TESTING TODAY; POINT OF SERVICE Urine drug screening will be performed today to monitor compliance with opioid therapy or to serve as a baseline screen for a patient who may be a candidate for opioid therapy in the future, pending UDS results. We will monitor with in-office testing (rapid testing) today and review the results prior to dispensing prescription, as well. Patient has been made aware of this policy. 02/25/2025 Radiculopathy of thoracic region (ICD-10 - M54.14) 02/25/2025 Radiculopathy of thoracic region (ICD-10 - M54.14) 01/11/2025 Radiculopathy of thoracic region (ICD-10 - M54.14) 12/02/2024 Radiculopathy of thoracic region (ICD-10 - M54.14) 09/02/2024 Lumbar radiculopathy (ICD-10 - M54.16) 10/29/2024 Lumbar radiculopathy (ICD-10 - M54.16) 10/07/2024 Radiculopathy of thoracic region (ICD-10 - M54.14) 08/05/2024 Radiculopathy of thoracic region (ICD-10 - M54.14) 08/05/2024 Lumbar spondylosis (ICD-10 - M47.816) 10/07/2024 Lumbar radiculopathy (ICD-10 - M54.16) 10/29/2024 Abnormality of gait and mobility (ICD-10 - R26.9) 09/02/2024 Lumbar spondylosis (ICD-10 - M47.816) 12/02/2024 Lumbar radiculopathy (ICD-10 - M54.16) 01/11/2025 Lumbar radiculopathy (ICD-10 - M54.16) 02/25/2025 Lumbar radiculopathy (ICD-10 - M54.16) 02/25/2025 Abnormality of gait and mobility (ICD-10 - R26.9) 01/11/2025 Abnormality of gait and mobility (ICD-10 - R26.9) 09/02/2024 Abnormality of gait and mobility (ICD-10 - R26.9) 12/02/2024 Abnormality of gait and mobility (ICD-10 - R26.9) 10/29/2024 Compression fracture of T7 vertebra, sequela (ICD-10 - S22.060S) 10/07/2024 Lumbar spondylosis (ICD-10 - M47.816) 08/05/2024 Compression fracture of T7 vertebra, sequela (ICD-10 - S22.060S) 08/05/2024 Abnormality of gait and mobility (ICD-10 - R26.9) 10/07/2024 Abnormality of gait and mobility (ICD-10 - R26.9) 10/29/2024 snf (current) use of opiate analgesic (ICD-10 - Z79.891) 12/02/2024 Compression fracture of T7 vertebra, sequela (ICD-10 - S22.060S) 09/02/2024 Compression fracture of T7 vertebra, sequela (ICD-10 - S22.060S) 01/11/2025 Compression fracture of T7 vertebra, sequela (ICD-10 - S22.060S) 02/25/2025 Compression fracture of T7 vertebra, sequela (ICD-10 - S22.060S) 02/25/2025 snf (current) use of opiate analgesic (ICD-10 - Z79.891) 01/11/2025 snf (current) use of opiate analgesic (ICD-10 - Z79.891) RECOMMEND URINE TESTING TODAY Urine drug screening will be performed today to monitor compliance with opioid therapy or to serve as a baseline screen for a patient who may be a candidate for opioid therapy in the future, pending UDS results. We will monitor with in-office testing (rapid testing) today and review the results prior to dispensing prescription. All positive results will be sent for quantitative analysis to ensure accuracy and quantify amounts. Any expected positive results that return negative will also be sent for quantitative analysis. Any questionable read or any medication we cannot test for in the office confidently will be sent for quantitative analysis, as well. Patient has been made aware of this policy and agrees to abide by our urine testing policy. 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 We will monitor with in-office testing (rapid testing) today and review the results prior to dispensing prescription. All positive results will be sent for quantitative analysis to ensure accuracy and quantify amounts. Any expected positive results that return negative will also be sent for quantitative analysis. Any questionable read or any medication we cannot test for in the office confidently will be sent for quantitative analysis, as well. Patient has been made aware of this policy and agrees to abide by our urine testing policy. 12/02/2024 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) use of opiate analgesic (ICD-10 - Z79.891) 10/29/2024 Lumbar spondylosis (ICD-10 - M47.816) 10/07/2024 Compression fracture of T7 vertebra, sequela (ICD-10 - S22.060S) 08/05/2024 snf (current) use of opiate analgesic (ICD-10 - Z79.891) 10/07/2024 snf (current) use of opiate analgesic (ICD-10 - Z79.891) 12/02/2024 Lumbar spondylosis (ICD-10 - M47.816) 01/11/2025 Lumbar spondylosis (ICD-10 - M47.816) 02/25/2025 Lumbar spondylosis (ICD-10 - M47.816) 08/05/2024 Other Angelo Romo am scribing for Dr. Zeb Bro. I, Dr. Zeb Bro, personally performed the services described in this documentation , as scribed by Angelo Mendez, and it is both accurate and complete. 09/02/2024 Other Angelo Romo am scribing for Dr. Zeb Bro. I, Dr. Zeb Bro, personally performed the services described in this documentation, as scribed by Angelo Mendez, and it is both accurate and complete. 10/07/2024 Other Angelo Romo am scribing for Dr. Zeb Bro. I, Dr. Zeb Bro, personally performed the services described in this documentation, as scribed by Angelo Mendez, and it is both accurate and complete. 12/02/2024 Other Camille Romo NCMA, am scribing for Dr. Zeb Bro. I, Dr. Zeb Bro, personally performed the services described in this documentation, as scribed by SEVERINO Maradiaga , and it is both accurate and complete. Plan Of Treatment Pending Test Test Name Order Date MRI Lumbar Spine w/o [id number] 09/17/19 Next Appt Details Provider Name:Zeb Bro, 04/28/2025 08:00:00 AM, [address] [place], [address], Insurance Providers Payer Name Payer Address Payer Phone Subscriber Number Group Number Insured Name Patient Relationship to Insured Coverage Start Date Coverage End Date [facility] [address] [place] [address] [id number] Tip Reed Self - patient is the insured [facility] [address] [place] [address] [id number] Tip Lincoln Self - patient is the insured Medical (General) History Medical History History ICD Code High Blood Pressure bronchitis migraine headaches Depression Arthritis Surgical History Surgery Date(Month/Year) shoulder replacement Foot Surgery
--- OUTSIDE RECORDS SUMMARY | 2025-02-25 10:28 | XMS_ITS | Clinical Summary ---
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 5 Active atorvastatin (LIPITOR) 40 mg tablet Take 40 mg by mouth daily at bedtime. 5 Active cyclobenzaprine (FLEXERIL) 10 mg tablet Take 10 mg by mouth 3 times daily as needed. 5 Active DULoxetine (CYMBALTA) 30 mg Capsule, Delayed Release(E.C.) Take 1 Capsule by mouth daily. 5 Active DULoxetine (CYMBALTA) 60 mg Capsule, Delayed Release(E.C.) Take 1 Capsule by mouth daily. 5 Active ergocalciferol (VITAMIN D2) 50,000 unit capsule Take 1 Capsule by mouth every 7 days. 5 Active famotidine (PEPCID) 40 mg tablet Take 1 Tablet by mouth 2 times daily. 5 Active gabapentin (NEURONTIN) 300 mg capsule Take 1 Capsule by mouth 2 times daily. 5 Active hydroCHLOROthiazi de 12.5 mg tablet Take 1 Tablet by mouth daily. 5 Active ibuprofen (MOTRIN) 800 mg tablet Take 800 mg by mouth every 8 hours as needed. 5 Active ketorolac tromethamine (TORADOL) 10 mg tablet Take 10 mg by mouth every 6 hours as needed. 5 Active losartan (COZAAR) 100 mg tablet Take 1 Tablet by mouth daily. 5 Active tadalafil (CIALIS) 10 mg tablet Take 10 mg by mouth 1 time daily as needed. 5 Active Narcan 4 mg/actuation [place], Non-Aerosol Administer 4 mg in one nostril (alternate nostril with each dose) one time as needed. 5 Active tadalafiL (CIALIS) 20 mg tablet Take 20 mg by mouth 1 time daily as needed. 5 Active traZODone (DESYREL) 50 mg tablet Take 1 Tablet by mouth daily. 5 Active Breztri Aerosphere 160 mcg-9mcg-4.8mcg/a ctuation HFA aerosol inhalerIndication s:Chronic obstructive pulmonary disease, unspecified COPD type (CMS/[facility]) Take 2 Puffs by inhalation 2 times daily. 10.7 Gram 5 Active fluticasone/umecl idin/vilanter (TRELEGY ELLIPTA INHALATION) Take 1 Puff by inhalation daily. Active multivitamin (DAILY-CALEB) tablet Take 1 Tablet by mouth daily. Active oxyCODONE-acetami nophen (Percocet) 5-325 mg tabletIndications :Acute shoulder pain, unspecified laterality,S/P arthroscopy of right shoulder Take 1 Tablet by mouth every 6 hours as needed for Pain, Mild or Pain, Moderate. Max Daily Amount: 4 Tablets 30 Tablet 5 Active Active Problems No known active problems Encounters Date Type Department Care Team Description 02/18/2025 Orders Only [facility] [address] [place] [phone] Shailesh Payton MD Burning pain (Primary Dx); Right elbow pain 02/10/2025 Telephone [facility] [address] [place] [phone] Shailesh Payton MD Question 01/28/2025 9:30 AM CDT Office Visit [facility] [id number] [place] [phone] Blanca Robin E S/P arthroscopy of right shoulder (Primary Dx) 12/29/2024 External Device Data STL ABSTRACTION Provider, Abstract 12/17/2024 3:00 PM CDT Office Visit [facility] [address] [place] [phone] Blanca Robin S/P arthroscopy of right shoulder (Primary Dx) 12/17/2024 Refill [facility] [address] [place] [address] Shailesh Payton MD Acute shoulder pain, unspecified laterality; S/P arthroscopy of right shoulder 12/16/2024 Telephone [facility] [address] [place] [address] Shailesh Payton MD Information 12/04/2024 Refill [facility] [address] [place] [phone] Shailesh Payton MD Acute shoulder pain, unspecified laterality; S/P arthroscopy of right shoulder 11/25/2024 Refill [facility] [address] [place] [phone] Shailesh Payton MD S/P arthroscopy of right shoulder (Primary Dx); Acute shoulder pain, unspecified laterality from Last 3 Months Social History Tobacco Use Types Packs/Day Years Used Date Smoking Tobacco: Every Day Cigarettes 1 43.4 Started: 1981 Passive Smoke Exposure: Past Smokeless Tobacco: Never Tobacco Cessation:Ready to Q uit: Not Asked; Counseling Given: Not Answered Alcohol Use Standard Drinks/Week Comments Not Currently 2 (1 standard drink = 0.6 oz pur e alcohol) Feeling Safe Answer Date Recorded Are you in a relationship wi th someone who hurts you emotionally and/or physically? 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 Gender Identity Not on file Sexual Orientation Not on file Last Filed Vital Signs Vital Sign Reading Time Taken Comments Blood Pressure 110/70 01/28/2025 9:39 AM CDT Pulse 79 11/10/2024 12:25 PM CDT Temperature 36.4 C (97.6 F) 11/10/2024 12:00 PM CDT Respiratory Rate 18 11/10/2024 12:03 PM CDT Oxygen Saturation 96% 11/10/2024 12:25 PM CDT Inhaled Oxygen Concentration - - Weight 111.1 kg (245 lb) 01/28/2025 9:39 AM CDT Height 180.3 cm (5' 11 ) 01/28/2025 9:39 AM CDT Body Mass Index 34.17 01/28/2025 9:39 AM CDT Plan of Treatment Upcoming Encounters Date Type Department Care Team (Late st Contact Info) Description 03/11/2025 8:30 AM CDT Telephone Check Up [facility] [address] [place] [phone] Blanca Robin E [address] [place] [address] 10/15/2025 8:00 AM CDT Office Visit [facility] [address] [place] [address] Sandra Ramos MD [address] [place] [address] Health Maintenance Due Date Last Done Comments Pre-Diabetes and Diabetes Screening 1970 DTAP/TDAP/TD VACCINES (1 - Tdap) 09/25/1987 HEPATITIS B VACCINES (1 of 3 - 19+ 3-dose series) 09/06 COLORECTAL SCREENING 2013 Colorectal Cancer Screening 2013 FIT-DNA Q 3 years 2013 FIT/FOBT Q 1 year 2013 Flex Sig/CT Colonography Q 5 years 2013 Lung Cancer Screening 2018 ZOSTER VACCINE (1 of 2) 2018 INFLUENZA VACCINE (#1) 2025 Medical Devices Implanted Type Area Carrier Loader Device Identifier Shelf Expiration Date Model / Serial / Lot [place] Lnt Impl Sys 7.75mm Bc Swiveloc [id number] - [id number] Implanted:Qty: 1 on 11/10/2024 by Shailesh Payton MD at [facility] [place] Right: Shoulder [employer] [id number] 07/07/2028 AR-[id number] SL / / [id number] [place] Suture 4.75x19.1mm Swiveloc Kntls Ar-[id number] - [id number] Implanted:Qty: 1 on 11/10/2024 by Shailesh Payton MD at [facility] [place] Right: Shoulder [employer] [id number] 08/07/2028 AR-[id number] CC / / [id number] [place] Suture 5.5x14.7mm Bio Corkscrew W/3 #2 [id number] - [id number] Implanted:Qty: 1 on 11/10/2024 by Shailesh Payton MD at [facility] [place] Right: Shoulder [employer] [id number] 06/06/2028 AR-[id number] F-3 / / [id number] Insurance [facility] [id number]
[2025-02-25 10:35] VITALS: BP 113/74; PULSE 84; RESP 16; TEMP 36.8; O2SAT 97; BMI 37.1
--- NOTE | 2025-02-25 12:00 | XRR_ITS ---
PROCEDURE INFORMATION: Exam: XR Chest Exam date and time: 02/25/2025 12:06 PM Age: 54 years old Clinical indication: Shortness of breath; Additional info: SOB TECHNIQUE: Imaging protocol: Radiologic exam of the chest. Views: 1 view. COMPARISON: CT chest w con* [id number] 07/12/2024 1:45 PM FINDINGS: Lungs: Calcified left upper lobe granuloma. No infiltrate or edema. Pleural spaces: Unremarkable. No pleural effusion. No pneumothorax. Heart/Mediastinum: Unremarkable. No cardiomegaly. Bones/joints: Unremarkable. XR/XR chest 1V portable [id number] IMPRESSION: No acute findings.
--- NOTE | 2025-02-25 12:21 | W.ED.GENADLT ---
HPI - General Adult General: Chief complaint: General Medical Stated complaint: Pneumonia getting worse SOB no energy Time Seen by Provider: 02/25/25 12:20 History of Present Illness: 54-year-old man with a history of hypertension, obesity, hyperlipidemia, tobacco dependence who presents emergency room with increased cough and difficulty breathing. Sore throat. Decreased energy. He says he was diagnosed with pneumonia and was put on a Z-Bubba and another antibiotic which he completed and now is on some steroids as well. He also reports that he is gaining 15 to 20 pounds in weight and has swelling in his legs. No known history of heart failure. No heart attacks. Related Data Home Medications ?Medication ?Instructions ?Recorded ?Confirmed albuterol sulfate 1.25 mg/3 mL 1.25 mg inhalation QID PRN 06/29/23 02/15/25 solution for nebulization Shortness Of Breath Or Wheezing fluticasone fur. 100 mcg-umeclid 1 inh inhalation DAILY 06/29/23 02/15/25 62.5 mcg-vilant 25 mcg inhalat.powder (Trelegy Ellipta) atorvastatin 40 mg tablet 40 mg PO BEDTIME 06/11/24 02/15/25 hydrochlorothiazide 12.5 mg tablet 12.5 mg PO DAILY 06/11/24 02/15/25 losartan 50 mg tablet 50 mg PO DAILY 06/11/24 02/15/25 cyclobenzaprine 10 mg tablet 10 mg PO Q8H PRN Back Pain 07/12/24 02/15/25 gabapentin 100 mg capsule 100 mg PO BID 07/12/24 02/15/25 ketorolac 10 mg tablet 10 mg PO Q8H PRN Pain 07/12/24 02/15/25 multivitamin with minerals-folic 1 tab PO DAILY 07/12/24 02/15/25 acid 80 mcg chewable tablet (Centrum Adult 50 Plus) tiotropium bromide 18 mcg capsule See Rx Instructions .Route .COMPLEX 07/12/24 02/15/25 with inhalation device (Spiriva with HandiHaler) hydrocodone 7.5 mg-acetaminophen 1 tab PO Q6H PRN 10/14/24 02/15/25 325 mg tablet oxycodone-acetaminophen 5 mg-325 1 tab PO Q4H 11/17/24 02/15/25 mg tablet (Percocet) Previous Rx's ?Medication ?Instructions ?Recorded benzonatate 200 mg capsule 200 mg PO BID PRN cough #30 caps 05/05/24 ipratropium bromide 17 2 inh inhalation TID PRN shortness 07/12/24 mcg/actuation HFA aerosol inhaler of breath or wheezing #12.9 grams (Atrovent HFA) methylprednisolone 4 mg tablets in See Rx Instructions PO .COMPLEX 07/12/24 a dose pack (Medrol (Bubba)) #21 ea meloxicam 15 mg tablet 15 mg PO DAILY #30 tabs 09/21/24 bupropion HCl 75 mg tablet 75 mg PO DAILY 30 days #30 tabs 02/15/25 mirtazapine 30 mg tablet 30 mg PO .qhs #30 tabs 02/15/25 Allergies Allergy/AdvReac Type Severity Reaction Status Date / Time Penicillins Allergy Severe ALGY-Anaphy Verified 02/15/25 16:30 laxis celecoxib (From Celebrex) Allergy Intermediate ADR-Itching Verified 02/15/25 16:30 diclofenac (From Arthrotec) Allergy Intermediate ADR-Itching Verified 02/15/25 16:30 erythromycin base Allergy Intermediate ADR-Itching Verified 02/15/25 16:30 misoprostol (From Arthrotec) Allergy Intermediate ADR-Itching Verified 02/15/25 16:30 Review of Systems Narrative: Constitutional symptoms: Negative except as documented in HPI. Skin symptoms: Negative except as documented in HPI. Eye symptoms: Negative except as documented in HPI. ENMT symptoms: Negative except as documented in HPI. Respiratory symptoms: Negative except as documented in HPI. Cardiovascular symptoms: Negative except as documented in HPI. Gastrointestinal symptoms: Negative except as documented in HPI. Genitourinary symptoms: Negative except as documented in HPI. Musculoskeletal symptoms: Negative except as documented in HPI. Neurologic symptoms: Negative except as documented in HPI. Psychiatric symptoms: Negative except as documented in HPI. Endocrine symptoms: Negative except as documented in HPI. PFSH ED PFSH: Medical History (Updated 02/25/25 @ 15:44 by Taryn Butler MD) Psychiatric care Social History Smoking and tobacco/nicotine status: never used tobacco/nicotine Alcohol intake: current Alcohol intake frequency: few times a month Alcohol type: beer Substance/Drug Use: never Physical Exam Narrative: EXAM NARRATIVE: General: Alert, no acute distress. Skin: Warm, dry. Head: Normocephalic, atraumatic. Neck: Supple, trachea midline. Eye: Extraocular movements are intact. Ears, nose, mouth and throat: mucosa moist. Cardiovascular: Regular, Normal peripheral perfusion. 2+ tibial edema Respiratory: Lungs are clear to auscultation, respirations are non-labored, breath sounds are equal, Symmetrical chest wall expansion. Gastrointestinal: Soft, Nontender, Non distended Musculoskeletal: Normal ROM, no deformity. Neurological: Alert and oriented, No focal neurological deficit observed. Psychiatric: Cooperative, appropriate mood & affect. Course Vital Signs: Vital signs: Vital Signs Temperature 98.2 F 02/25/25 10:35 Pulse Rate 81 02/25/25 14:48 Respiratory Rate 16 02/25/25 10:35 Blood Pressure 118/90 02/25/25 14:48 Pulse Oximetry 98 02/25/25 14:48 Oxygen Delivery Me thod Room Air 02/25/25 14:48 MDM - General Adult Medical Decision Making Differential diagnosis for patient with shortness of breath includes but is not limited to and based on the above HPI, review of systems and physical exam: Pneumonia. Bronchitis. Asthma or COPD with acute exacerbation. Acute coronary syndrome / [place]. Pulmonary embolism. Anxiety. Congestive heart failure. Viral infections including influenza and Covid-19. Atrial fibrillation. Anxiety. Pleural effusion. Pneumothorax. Orders placed to evaluate differential diagnosis based on the above differential, HPI and physical exam Chest x-ray: No acute process. No infiltrate. No pneumothorax. This was reviewed and interpreted by myself the emergency room physician. I also reviewed the radiology report. EKG: Time 1423. Rate 75. Normal sinus rhythm, Q waves/ST abnormalities. Nonspecific. No ST elevation., no ectopy, normal MS & QRS intervals, This was reviewed and interpreted by myself the ER physician at 1428 Lab Review: Laboratory results were reviewed and interpreted by myself the emergency room physician. Patient does have some leukocytosis. No significant anemia. No renal failure. Procalcitonin is negative. proBNP is slightly elevated at 4300. Initial troponin is around 360. Repeat is around 310 with a delta 50 negative. He does say he had some chest pain yesterday. I think he may have had an event yesterday/non-STEMI and is now recovering. Also some concern for new onset heart failure. CTA of the chest with PE protocol: No PE. Emphysema. Pneumonitis or pneumonia on right lower lobe. Enlarged mediastinal lymph nodes. This was reviewed and interpreted by myself the emergency room physician. I also reviewed the radiology report. I reviewed the patient's medical record. Reexamination: Patient remained stable. No increased work of breathing. No altered mental status. No focal motor deficits. Consultation: I spoke with Dr. Mcneil who is on-call for the hospitalist service who agrees to admission. He requested cardiology consult Consultation: I spoke with Dr. Everett who is on-call for cardiology and who will see the patient as a consultation Assessment and plan: COPD with acute exacerbation Tobacco abuse Non-ST elevation myocardial infarction ?Non-STEMI: Aspirin, Plavix and heparin drip with bolus. Cardiology consulted. ?COPD exacerbation: Solu-Medrol, doxycycline and albuterol -I discussed the patient with the hospitalist on-call who is admitting the patient. - Discussed findings and plan with patient. Answered any questions. - All laboratory values were reviewed and interpreted personally by myself, the ER physician - All imaging was reviewed and interpreted personally by myself, the ER physician. - Evaluation and treatment of this problem were appropriate in the emergency setting Lab Data 02/25/25 12:41 02/25/25 12:41 Radiology Impressions Chest X-Ray 02/25/25 12:00 IMPRESSION: No acute findings. Chest CTA 02/25/25 13:50 IMPRESSION: 1. No pulmonary embolism. 2. Paraseptal and centrilobular emphysema and changes of interstitial pulmonary fibrosis. 3. New areas of groundglass attenuation greatest in the RIGHT lower lobe. This can be noted with hypersensitivity pneumonia or small vessel disease. 4. Cholelithiasis. 5. New enlarged mediastinal and hilar lymph nodes since 07/12/2024. This may be reactive lymphadenopathy. Recommend follow-up chest CT after treatment for the patient's acute pulmonary disease. Laboratory Results WBC 14.38 10^3/uL (3.29-11.43) H 02/25/25 12:41 RBC 3.95 10^6/uL (3.85-5.65) 02/25/25 12:41 Hgb 11.50 g/dL (11.27-16.99) 02/25/25 12:41 Hct 36.7 % (37-53) L 02/25/25 12:41 MCV 92.9 fl (82-101) 02/25/25 12:41 MCH 29.1 pg (27-33) 02/25/25 12:41 MCHC 31.3 g/dL (30-55) 02/25/25 12:41 RDW 15.2 % (12.1-15.1) H 02/25/25 12:41 Plt Count 191 10^3/cmm (157-399) 02/25/25 12:41 MPV 10.0 fL (7.4-10.4) 02/25/25 12:41 Neut % (Auto) 83.8 % 02/25/25 12:41 Lymph % (Auto) 9.2 % 02/25/25 12:41 [place] % (Auto) 5.2 % 02/25/25 12:41 Eos % (Auto) 0.1 % 02/25/25 12:41 Baso % (Auto) 0.7 % 02/25/25 12:41 Neut # (Auto) 12.04 10^3/uL (1.8-7.7) H 02/25/25 12:41 Lymph # (Auto) 1.3 10^3/uL (0.8-4.8) 02/25/25 12:41 [place] # (Auto) 0.8 10^3/uL (0.2-0.9) 02/25/25 12:41 Eos # (Auto) 0.0 10^3/uL (0.0-0.8) 02/25/25 12:41 Baso # (Auto) 0.1 10^3/uL (0.0-0.1) 02/25/25 12:41 Nucleated RBC % (auto) 0 % 02/25/25 12:41 Nucleated RBCs # 0.0 /100WBC 02/25/25 12:41 Sodium 136 mmol/L (136-145) 02/25/25 12:41 Potassium 4.9 mmol/L (3.5-5.1) 02/25/25 12:41 Chloride 100 mmol/L (98-107) 02/25/25 12:41 Carbon Dioxide 24 mmol/L (22-29) 02/25/25 12:41 Anion Gap 16.9 (5-19) 02/25/25 12:41 BUN 18 mg/dL (6-20) 02/25/25 12:41 Creatinine 1.1 mg/dL (0.7-1.2) 02/25/25 12:41 GFR Calculation 69.2 mL/min (90-130) L 02/25/25 12:41 Glucose 118 mg/dL (65-115) H 02/25/25 12:41 Calculated Osmolality 285 mOsm/kg (285-295) 02/25/25 12:41 Lactic Acid 1.4 mmol/L (0.5-2.2) 02/25/25 12:41 Calcium 8.9 mg/dL (8.5-10.5) 02/25/25 12:41 Total Bilirubin 0.4 mg/dL (0.15-1.2) 02/25/25 12:41 AST 32 U/L (0-40) 02/25/25 12:41 ALT 25 U/L (0-41) 02/25/25 12:41 Alkaline Phosphatase 94 U/L (40-130) 02/25/25 12:41 Troponin T Baseline 358 ng/L (0-15) H* 02/25/25 12:41 Troponin T 120 Minute 310.3 ng/L (0-15) H 02/25/25 14:36 Delta Troponin T -47.7 ABS# (0-10) L 02/25/25 14:36 C-Reactive Protein 12.3 mg/L (0.0-4.9) H 02/25/25 12:41 NT-Pro-B Natriuret Pep 4303 pg/mL (0-125) H 02/25/25 12:41 Total Protein 6.8 g/dL (6.6-8.7) 02/25/25 12:41 Albumin 4.3 g/dL (3.5-5.2) 02/25/25 12:41 Globulin 2.5 g/dL (1.3-4.6) 02/25/25 12:41 Procalcitonin 0.03 ng/mL (0-0.5) 02/25/25 12:41 All radiology interpretation(s) finalized by discharge Discharge Plan Discharge Patient Disposition: Admitted As Inpatient Clinical Impression: COPD with acute exacerbation, Non-ST elevated myocardial infarction (non-STEMI), Tobacco dependence Condition: Stable Coding Level of Care Code ED Film Numberer for Manny Pagan
[2025-02-25 12:53] LABS: Hematocrit 36.7 % (37-53); Hemoglobin 11.50 g/dL (11.27-16.99); Mean Corpuscular HGB Conc 31.3 g/dL (30-55); Mean Corpuscular Hemoglobin 29.1 pg (27-33); Mean Corpuscular Volume 92.9 fl (82-101); Nucleated Red Blood Cells % 0 %; Platelet Count 191 10^3/cmm (157-399); Red Blood Count 3.95 10^6/uL (3.85-5.65); White Blood Count 14.38 10^3/uL (3.29-11.43)
[2025-02-25 13:10] LABS: Lactic Sepsis W/Reflex 1.4 mmol/L (0.5-2.2)
[2025-02-25 13:14] LABS: Troponin(5th) Baseline 358 ng/L (0-15)
[2025-02-25 13:26] LABS: NT Pro B Type Natriuretic Pept 4303 pg/mL (0-125); Procalcitonin 0.03 ng/mL (0-0.5)
[2025-02-25 13:37] LABS: Alanine Aminotransferase 25 U/L (0-41); Albumin Level 4.3 g/dL (3.5-5.2); Alkaline Phosphatase 94 U/L (40-130); Anion Gap 16.9 (5-19); Aspartate Amino Transferase 32 U/L (0-40); Blood Urea Nitrogen 18 mg/dL (6-20); Calcium 8.9 mg/dL (8.5-10.5); Carbon Dioxide 24 mmol/L (22-29); Chloride 100 mmol/L (98-107); Creatinine Clr Calc Pharmacy 96.2945; Globulin 2.5 g/dL (1.3-4.6); Glucose 118 mg/dL (65-115); Osmolality Calculated 285 mOsm/kg (285-295); Potassium 4.9 mmol/L (3.5-5.1); Sodium 136 mmol/L (136-145); Total Protein 6.8 g/dL (6.6-8.7)
--- NOTE | 2025-02-25 13:50 | CT_ITS ---
WS: [id number] CT CHEST ANGIOGRAPHY WITH REFORMATS HISTORY: sob TECHNIQUE: Contiguous axial images are obtained through the chest during arterial injection of intravenous contrast. Images are reconstructed to evaluate the pulmonary arteries. MIP imaging also reviewed. All CT scans at [facility] use at least one of these dose optimization techniques: automated exposure control; mA and/or kV adjustment per patient size (includes targeted exams where dose is matched to clinical indication); or iterative reconstruction. CONTRAST: Omnipaque 350; 100 mL IV. DLP: 510.99 mGy.cm COMPARISON: 07/12/2024 Very good opacification of the pulmonary arteries. No filling defects or pulmonary emboli. Mild atherosclerosis and ectasia thoracic aorta. No aneurysm. Moderate LEFT heart enlargement. No pericardial or pleural effusions. Lungs are hyperinflated. Paraseptal and centrilobular emphysema. Interstitial thickening in the periphery of both lungs. There are additional changes of honeycombing identified. LEFT upper lobe benign calcified granuloma. Mild groundglass attenuation is new in the RIGHT lower lobe. New enlarged mediastinal and hilar lymph nodes. The largest lymph nodes at the RIGHT hilum measure up to 2.1 cm. RIGHT interlobar lymph node 1.6 cm. Smaller lymph nodes RIGHT hilar and RIGHT paratracheal. Hepatic steatosis. Cholelithiasis without acute cholecystitis. No adrenal mass. Mild anterior wedging of T7 by 30% is stable. CT/CT angio chest PE protcl [id number] IMPRESSION: 1. No pulmonary embolism. 2. Paraseptal and centrilobular emphysema and changes of interstitial pulmonar y fibrosis. 3. New areas of groundglass attenuation greatest in the RIGHT lower lobe. This can be noted with hypersensitivity pneumonia or small vessel disease. 4. Cholelithiasis. 5. New enlarged mediastinal and hilar lymph nodes since 07/12/2024. This may be reactive lymphadenopathy. Recommend follow-up chest CT after treatment for the patient's acute pulmonary disease.
--- NOTE | 2025-02-25 14:25 | ECG_ITS ---
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 Measurements Intervals [place] Rate: 75 P: 58 MT: 140 QRS: 79 QRSD: 131 T: -11 QT: 390 QTc: 436 Interpretive Statements SINUS RHYTHM INTRAVENTRICULAR CONDUCTION DELAY [130+ ms QRS DURATION] ANTEROLATERAL MYOCARDIAL INFARCTION , PROBABLY OLD [40+ ms Q WAVE IN I/aVL/V3-V6] Compared to ECG 07/12/2024 15:31:43 Intraventricular conduction delay now present Myocardial infarct finding now present Electronically Signed On 02-27-2025 09:41:12 CDT by Adin Everett M.D. [email or web address]
[2025-02-25] MEDS: iohexol 350 mg/mL 500 mL Btl (per mL) IV (14:30)
[2025-02-25 14:48] VITALS: BP 118/90; PULSE 81; O2SAT 98
[2025-02-25 15:09] LABS: Troponin 5 2HR 310.3 ng/L (0-15); Troponin 5 2HR Delta -47.7 ABS# (0-10)
[2025-02-25] MEDS: doxycycline 100 MG in sodium chloride 0.9% (plus) 100 ML IV (15:41)
--- NOTE | 2025-02-25 15:55 | PC.NURSE ---
per dr. godoy, admin patient home medication Gabapentin 300mg po ONCE and Hydrocodone 7.5-325mg po ONCE.
--- NOTE | 2025-02-25 15:56 | PC.NURSE ---
patient refuses to leave monitor on. patient is complying with doxycycline IV medication.
--- NOTE | 2025-02-25 15:56 | PC.NURSE ---
patient refused 2nd IV for Heparin. Verbalized to dr. godoy, and verbalized understanding. dr. godoy requested I let hospitalist know.
--- NOTE | 2025-02-25 16:07 | USCV_ITS ---
Tip Taylor Age: 54 Gender: M : 1970 Exam Date: 02/25/2025 16:39 Ordering Phys: Joyce Almonte Technologist: JIMMY Exam Location: [facility] Indication: CP BP: 118 / 90 HR: 80 Rhythm: Sinus Technical Quality: Adequate MEASUREMENTS (Male / Female) Normal Values 2D ECHO LV Diastolic Diameter PLAX 6.5 cm 4.2 - 5.9 / 3.9 - 5.3 cm IVS Diastolic Thickness 1.4 cm 0.6 - 1.0 / 0.6 - 0.9 cm IVS Systolic Thickness 2.5 cm LVPW Diastolic Thickness 1.7 cm 0.6 - 1.0 / 0.6 - 0.9 cm LVPW Systolic Thickness 2.1 cm LVOT Diameter 2.2 cm LV Ejection Fraction 2D Teich 51.9 % LV Ejection Fraction MOD 4C 34.3 % LV Ejection Fraction MOD 2C 30.7 % LV Ejection Fraction 2C AL 32.1 % LA Diameter 4.8 cm RA Systolic Volume 4C AL 79.3 ml RA Systolic Volume 4C MOD 76.8 ml LA Sys Volume AL 92.8 cm cubed LA Sys Volume Index AL 37.8 cm cubed/m squared Aorta at Sinotubular Diameter 2.8 cm IVC Diameter 2.0 cm M-MODE LA Ao Ratio MM 1.7 AV Cusp Separation MM 1.5 cm DOPPLER AV Peak Velocity 191.0 cm/s LVOT Peak Velocity 100.0 cm/s AV Area Cont Eq vti 1.4 cm squared AV Area Cont Eq pk 2.0 cm squared MV Peak Velocity 192.0 cm/s MV Area PHT 4.0 cm squared Mitral E to A Ratio 1.5 TV Peak E Velocity 59.0 cm/s PV Peak Velocity 82.0 cm/s FINDINGS Left Ventricle Normal left ventricular size, systolic function and wall thickness, with no regional wall motion abnormalities. Left ventricular ejection fraction is estimated at 60 %. Normal diastolic function. Right Ventricle The right ventricle is normal in size and function. Right Atrium The right atrium is normal in size. Left Atrium The left atrium is normal in size. Mitral Valve Patient has thickening of mitral valve, there appeared to be mobile mass in the subvalvular apparatus cannot rule torn chordae, no mitral valve stenosis. Moderate mitral valve regurgitation. Aortic Valve Structurally normal aortic valve without significant sclerosis or stenosis. There is no aortic regurgitation. Tricuspid Valve Structurally normal tricuspid valve without significant stenosis or regurgitation. Pulmonary artery systolic pressure is normal. Pulmonic Valve Structurally normal pulmonic valve without significant stenosis. There is no pulmonic regurgitation. Pericardium Normal pericardium without effusion. Aorta Normal ascending aorta dimension. IVC The inferior vena cava appears normal. CONCLUSIONS Normal left ventricular size, systolic function and wall thickness, with no regional wall motion abnormalities. Left ventricular ejection fraction is estimated at 60 %. Normal diastolic function. Patient has thickening of mitral valve, there appeared to be mobile mass in the subvalvular apparatus cannot rule torn chordae, no mitral valve stenosis. Moderate mitral valve regurgitation. There is no pericardial effusion. Right atrial pressure is around 5 mm of mercury. Sierra Cortes MD (Electronically Signed) Final Date: 26 February 2025 11:18 S
[2025-02-25 16:29] LABS: Procalcitonin 0.03 ng/mL (0-0.5)
--- NOTE | 2025-02-25 16:33 | PC.NURSE ---
spoke with dr. urban and reported to him that patient is refusing second IV, requesting water, and reporting that he wants to leave if we will not be performing tests tonight. patient educated on 2nd IV issue. patient declines. will start heparin through [address] urban requests consult with cardiology. 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
--- NOTE | 2025-02-25 16:35 | P.CONIM_ITS ---
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 He did not want to have any treatment/ procedures done at our facility. Also refused transfer. Providers/Reason For Consult 2 Consulting Physician/Specialty*: Dr Everett, interventional cardiology Reason for Consult*: elevated troponin Requesting Physician: Dr Butler Attending Physician: Lisa Mcneil MD History of Present Illness History of Present Illness Tip Taylor is a 54 year old male with past medical history of hypertension, smoking 1 pack/day, occasional alcohol use. He presented to the emergency room today with complaint of worsening shortness of breath, fatigue, recent diagnosis of pneumonia. He endorses a 15 to 20 pound weight gain and lower extremity edema which is new. He has never had a diagnosis of CAD, no previous heart attacks that he is aware of, no history of CHF. His father had history of CAD and bypass surgery, patient does not know what age but not before 50. He notes he has had chest pressure lasting 20 seconds in duration occurring about 5 times in the last week, most recent episode was yesterday. He has not had any nausea, vomiting, diaphoresis along with the pain. He was treated with antibiotics and steroids for the pneumonia. CTA negative for PE, does show right lower lobe pneumonia, no pleural effusions. Troponin series: 358-> 310. Lactic acid 1.4, procalcitonin 0.03 negative. BNP 4303, WBC 14, BUN 18, creatinine 1.1, potassium 4.9. Previous echocardiogram in June 2024 shows LVEF 60%. Echocardiogram currently being performed. He is able to lay flat and does not have any respiratory distress. Again no chest pain since yesterday. Twelve-lead EKG is unavailable to review, no STEMI on bedside monitor, he is in sinus rhythm, heart rate 80 bpm, blood pressures stable currently 118/70. He is on room air oxygen saturation 98%. Review of Systems 2 Const: Reports: change in weight; Denies: fever(s), chills, fatigue or diaphoresis Eyes: Denies: change in vision ENMT: Denies: epistaxis Card: Reports: chest pain, edema and swelling of feet/ankles; Denies: palpitations, irregular heart rhythm, syncope, pre-syncope, dyspnea on exertion, orthopnea or leg pain with exertion Resp: Reports: dyspnea; Denies: productive cough or wheezing GI: Denies: nausea, vomiting, hematemesis, hematochezia or melena : Denies: hematuria Musc: Denies: extremity swelling Carl/Lymph: Denies: easy bruising or easy bleeding Medications/Allergies Home Medications ?Medication ?Instructions ?Recorded ?Confirmed ?Last Taken ?Type albuterol sulfate 1.25 mg/3 mL 1.25 mg inhalation QID PRN 06/29/23 02/25/25 07/12/24 History solution for nebulization Shortness Of Breath Or Wheez ing fluticasone fur. 100 mcg-umeclid 1 inh inhalation SAMIA Y 06/29/23 02/25/25 02/25/25 History 62.5 mcg-vilant 25 mcg inhalat.powder (Trelegy Ellipta) benzonatate 200 mg capsule 200 mg PO BID PRN cough #30 caps 05/05/24 02/25/25 07/11/24 Rx hydrochlorothiazide 12.5 mg tablet 12.5 mg PO DAILY 02/25/25 02/24/25 History multivitamin with minerals-folic 1 tab PO DAILY 02/25/25 02/25/25 History acid 80 mcg chewable tablet (Centrum Adult 50 Plus) hydrocodone 7.5 mg-acetaminophen 1 tab PO Q6H PRN Pain 10/14/24 02/25/25 02/25/25 History 325 mg tablet bupropion HCl 75 mg tablet 75 mg PO DAILY 30 days #30 tabs 02/15/25 02/25/25 02/25/25 Rx mirtazapine 30 mg tablet 30 mg PO .qhs #30 tabs 02/1502/25/25 02/24/25 19:00 Rx albuterol sulfate 2.5 mg/3 mL 2.5 mg inhalation TID 02/25/25 Unknown History (0.083 %) solution for nebulization doxycycline hyclate 100 mg tablet 100 mg PO BID 02/25/25 02/25/25 History ergocalciferol (vitamin D2) 1,250 1,250 mcg PO Q7D 02/25/25 02/21/25 History mcg (50,000 unit) capsule famotidine 40 mg tablet 40 mg PO BID 02/25/2502/24/25 08:00 History furosemide 20 mg tablet 20 mg PO DAILY 02/25/2502/06 Unknown History gabapentin 300 mg capsule 300 mg PO BID 02/25/2502/2502/25/25 History ibuprofen 800 mg tablet 800 mg PO TID PRN Pain 02/2502/25/25 02/25/25 History losartan 100 mg tablet 100 mg PO DAILY 02/25/2502/25/25 History Allergies Allergy/AdvReac Type Severity Reaction Status Date / Time Penicillins Allergy Severe ALGY-Anaphy Verified 02/15/25 16:30 laxis celecoxib (From Celebrex) Allergy Intermediate ADR-Itching Verified 02/15/25 16:30 diclofenac (From Arthrotec) Allergy Intermediate ADR-Itching Verified 02/15/25 16:30 erythromycin base Allergy Intermediate ADR-Itching Verified 02/15/25 16:30 misoprostol (From Arthrotec) Allergy Intermediate ADR-Itching Verified 02/15/25 16:30 PFSH Acute 2 PFSH: Medical History Psychiatric care Social History Smoking and tobacco/nicotine status: never used tobacco/nicotine Alcohol intake: current Alcohol intake frequency: few times a month Alcohol type: beer Substance/Drug Use: never Vitals/I&O/Wt Last Vital Signs Temp 98.2 F 02/25/25 10:35 Pulse 81 02/25/25 14:48 Resp 16 02/25/25 10:35 BP 118/90 02/25/25 14:48 Pulse Ox 98 02/25/25 14:48 O2 Del Method Room Air 02/25/25 14:48 Weight last 48 hrs Weight 259 lb Physical Exam 2 Const: COMMON NORMALS: no acute distress and patient oriented x3 GENERAL APPEARANCE: cooperative and comfortable ORIENTATION/CONSCIOUSNESS: Yes awake, Yes oriented to person, Yes oriented to place and Yes oriented to time Chest: COMMONS NORMALS: normal inspection of the chest and normal palpation of entire chest wall CHEST: Yes Symmetrical chest wall rise Resp: COMMON NORMALS: normal respiratory effort, No retractions, No use of accessory muscles and clear to auscultation bilaterally EFFORT & INSPECTION: Yes symmetric chest movement AUSCULTATION: clear to auscultation bilaterally Cardio: COMMON NORMALS: regular rate, regular rhythm, S1 normal heart sound present, S2 normal heart sound present, No gallops present (Cardio), No clicks present (Cardio), No murmurs present (Cardio) and No rub (Cardio) RATE: r egular rate RHYTHM: regular rhythm HEART SOUNDS: S1 normal heart sound present and S2 normal heart sound present PERIPHERAL PULSES: radial pulses present Extremity: GENERAL: Yes edema (2+ pitting edema in bilateral lower extremities below knee) Neuro: COMMON NORMALS: patient oriented x3 and moves all extremities S ENSORIUM/ORIENTATION: Yes oriented to person, Yes oriented to place and Yes oriented to time Data 02/25/25 12:41 02/25/25 12:41 Micro: Microbiology 02/25/25 13:06 Blood Culture - Preliminary Blood SPECIMEN COLLECTED 02/25/25 12:41 Blood Culture - Preliminary Blood SPECIMEN COLLECTED A&P Assessment and plan 1. Non-ST elevated myocardial infarction (non-STEMI): 2. Tobacco dependence: 3. HLD (hyperlipidemia): 4. Hypertension: 5. COPD with acute exacerbation: Plan: Discussed patient's laboratory results and symptoms with him. He stated if anyone is going to cut on me, you are not going to do it here, I want to be sent to [facility] . He apparently has had a bad experience with another cardiology physician here and does not want to pursue any invasive procedures here. Since he does have an NSTEMI with recent history of chest pain, coronary angiogram will likely be needed. Discussed patient with Dr. Everett and hospitalist service, Dr. Mcneil. Patient will need transfer to [facility] for further workup, requesting Dr. Mcneil to arrange. PDMP PDMP Reviewed: Not Reviewed Coding Level of Care Code Acute Code for Chg Fwd Diagnoses Non-ST elevated myocardial infarction (non-STEMI) I21.4 Tobacco dependence F17.200 HLD (hyperlipidemia) E78.5 Hypertension I10 COPD with acute exacerbation J44.1
--- NOTE | 2025-02-25 17:09 | PC.NURSE ---
spoke with dr. perea who states patient has declined services from cardiology. informed dr. urban and asked if I should hold the heparin drip. dr. urban ordered me to hold until he talks with cardiology.
--- NOTE | 2025-02-25 17:10 | PC.NURSE ---
patient is not hooked up to monitoring due to patient pulling cords off. a&ox4
--- NOTE | 2025-02-25 17:56 | W.PM.EVENTAC ---
Event Note Event Note: the patient was seen and admitted as a case of COPD exacerbation and further investigation found that he was having high likely NSTEMI based on his rise in [place]. cardio was consulted and patient was seen and examined. he was informed about his condition and all the risks and complications of further deterioration, need of urgent cath and management. he adamantly refused even after counseling done by the ER dr, assigned nurse and also his partner. he was informed about arrythmia, heart failure, fatal cardiomyopathy, debilitating heart condition and even cardiac arrest and . he was offered transfer to [facility], he agreed and transfer initated, he was accepted for transfer however since the bed availability was still to be determined therefore he was informed and preferred to leave. he was offered the protocol and recommended treatment for his NSTEMI, COPD exacerbation, with all the benefits and risks. the patient refused and preferred to go. all the conversation was done without any language barrier and the patient understood it. patients wishes were respected and to be signed AMA as per his preference and to send him with aspirin and high dose atorvastatin with cardio fu, antibiotics and duonebs for COPD exacerbation. avoid NSAIDs considering [place]. Event Notes Attestations Time Spent in Patient Care: Greater than 35 minutes (>than 50% of time spent in counselling and/or direct pt care on unit).
--- NOTE | 2025-02-25 18:05 | PC.NURSE ---
DR. DACOSTA SPOKE WITH PATIENT DUE TO NUMEROUS REQUESTS AND REFUSALS OF SERVICE (DOCUMENTED IN NOTES). PATIENT REQUESTED TO BE TRANSFERRED TO [facility] IN [place]. 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 [facility] ACCEPTED BUT STATED THEY WILL NOT HAVE A BED UNTIL 6PM ON 02/26/25. I INFORMED PATIENT OF THE TRANSFER PROCESS/TIMES. PATIENT STATES HE WANTED TO LEAVE AND GO HOME AND THAT HE WILL NOT BE WAITING HERE THAT LONG. DR. DACOSTA IN THE ROOM AT THE TIME OF THE STATEMENT. DR. DACOSTA EDUCATED PATIENT ON CONSEQUENCES OF LEAVING DURING CRITICAL HEALTH. PATIENT CONFIRMED HE WAS AWARE OF RISK OF LEAVING AND THAT HE WOULD BE GOING TO [facility] TOMORROW MORNING. DR. DACOSTA STATED HE WOULD HAVE DR. JOINER PLACE ORDERS FOR DC TO MANAGE CARE AT HOME. PATIENT VERBALIZED DISINTEREST IN MEDICATIONS. PATIENT SIGNED AMA FORM. THIS NURSE REMOVED PATIENT IV PRIOR TO LEAVING AND EDUCATED HIM ON DC MEDICATIONS AND OBTAINING RECORDS FROM MEDICAL RECORDS. PATIENT VERBALIZED UNDERSTANDING AND WAS AMBULATORY FROM ER.
== END 2025-02-25 18:06 | disposition left against medical advice (07) ==
PROVIDERS: Family Medicine; Student in an Organized Health Care Education/Training Program; Emergency Provider Emergency Medicine
DX: J44.1 Chronic obstructive pulmonary disease with (acute) exacerbation (principal); I21.4 Non-ST elevation (NSTEMI) myocardial infarction; F17.200 Nicotine dependence, unspecified, uncomplicated; E78.5 Hyperlipidemia, unspecified; I10 Essential (primary) hypertension
CPT/HCPCS: 36415; 71045; 71275; 80053; 83605; 83880; 84145; 84484; 85025; 86140; 87040; 93005; 93306; 96374; 99285; J3490; J9999